=== PATIENT | male | born 1945 | race Caucasian/White ===

== ENCOUNTER → 2016-08-15 | Outpatient (CLI) | payer MEDICARE | LOC: M SMT 08:18 | PROVIDERS: ATTEND Urology | DX: Z85.46 Personal history of malignant neoplasm of prostate (principal) ==

== ENCOUNTER → 2016-09-01 | Outpatient (CLI) | payer MEDICARE ==
[2016-09-01 13:28] LABS: BASO # 0.2 K/mm3 (0.0-0.2); BASO % 2.7 % (0.0-1.0); EOS # 0.2 K/mm3 (0.0-0.50); EOS % 3.3 % (0.0-3.0); LARGE UNSTAINED CELL # 0.1 K/mm3 (0.0-0.4); LARGE UNSTAINED CELL % 2.3 % (0.0-4.0); LYMPH # 1.9 K/mm3 (1.5-4.5); LYMPH % 29.6 % (24.0-44.0); MEAN CORPUSCULAR HEMOGLOBIN 28.8 pg (27.0-33.0); MEAN CORPUSCULAR VOLUME 87.5 fl (80.0-96.0); MONO # 0.5 K/mm3 (0.0-0.8); MONO % 8.9 % (0.0-5.0); NEUTROPHILS # 3.2 K/mm3 (1.8-7.7); NEUTROPHILS % 53.3 % (36.0-66.0); PLATELET COUNT, AUTOMATED 298 k/mm3 (150-450); RED CELL DISTRIBUTION WIDTH 13.2 % (11.5-14.5)
[2016-09-01 13:40] LABS: ALBUMIN/GLOBULIN RATIO 1.25 (1.00-1.93); ALKALINE PHOSPHATASE 104 U/L (45-117); ALT/SGPT 26 U/L (12-78); ANION GAP 4 MEQ/L (8-16); AST/SGOT 22 U/L (15-37); BILIRUBIN,TOTAL 0.7 MG/DL (0.2-1.0); BLOOD UREA NITROGEN 16 MG/DL (7-18); CARBON DIOXIDE LEVEL 32 MEQ/L (21-32); CHLORIDE LEVEL 106 MEQ/L (98-107); CHOLESTEROL LEVEL 195 MG/DL (<200); CREATININE FOR GFR 0.84 MG/DL (0.70-1.30); GLOMERULAR FILTRATION RATE > 60.0 (>42); GLUCOSE, FASTING 91 MG/DL (83-110); POTASSIUM SERUM 4.9 MEQ/L (3.5-5.1); SODIUM LEVEL 142 MEQ/L (136-145); TOTAL PROTEIN 7.2 GM/DL (6.4-8.2); TRIGLYCERIDES LEVEL 68 MG/DL (<150)
== END ==
LOC: M SMT 09:29
PROVIDERS: ATTEND Family Medicine
DX: E03.9 Hypothyroidism, unspecified (principal); I10 Essential (primary) hypertension

== ENCOUNTER → 2016-09-28 | Outpatient (CLI) | payer MEDICARE | LOC: M SMT 09:34 | PROVIDERS: ATTEND Urology | DX: Z85.46 Personal history of malignant neoplasm of prostate (principal) ==

== ENCOUNTER → 2016-10-12 | Outpatient (REF) | payer MEDICARE ==
[2016-10-12 09:56] LABS: BASO % 0.7 % (0.0-1.0); EOS # 0.1 K/mm3 (0.0-0.50); EOS % 2.8 % (0.0-3.0); LARGE UNSTAINED CELL # 0.2 K/mm3 (0.0-0.4); LARGE UNSTAINED CELL % 3.3 % (0.0-4.0); LYMPH # 1.6 K/mm3 (1.5-4.5); LYMPH % 31.3 % (24.0-44.0); MEAN CORPUSCULAR HEMOGLOBIN 28.3 pg (27.0-33.0); MEAN CORPUSCULAR HGB CONC 32.6 g/dl (32.0-36.5); MEAN CORPUSCULAR VOLUME 86.9 fl (80.0-96.0); MONO # 0.4 K/mm3 (0.0-0.8); MONO % 7.9 % (0.0-5.0); NEUTROPHILS # 2.8 K/mm3 (1.8-7.7); NEUTROPHILS % 54.2 % (36.0-66.0); PLATELET COUNT, AUTOMATED 255 k/mm3 (150-450); RED CELL DISTRIBUTION WIDTH 12.6 % (11.5-14.5); WHITE BLOOD COUNT 5.2 K/mm3 (4.0-10.0)
[2016-10-12 10:14] LABS: ANION GAP 9 MEQ/L (8-16); BLOOD UREA NITROGEN 12 MG/DL (7-18); CARBON DIOXIDE LEVEL 30 MEQ/L (21-32); CHLORIDE LEVEL 103 MEQ/L (98-107); CREATININE FOR GFR 0.92 MG/DL (0.70-1.30); FERRITIN 19 NG/ML (26-388); GLOMERULAR FILTRATION RATE > 60.0 (>42); GLUCOSE, FASTING 90 MG/DL (83-110); PERCENT SATURATION 19.3 % (19.7-37.4); POTASSIUM SERUM 4.5 MEQ/L (3.5-5.1); SODIUM LEVEL 142 MEQ/L (136-145); TOTAL IRON BINDING CAPACITY 420 UG/DL (250-450)
== END ==
LOC: M SFHCPLAZ 09:04
PROVIDERS: ATTEND Physician Assistant Medical
DX: K92.1 Melena (principal)

== ENCOUNTER → 2016-10-14 | Outpatient (REF) | payer MEDICARE ==
[~2016-10-14] MED LIST: AVAP75TA PO; LEVO25TA5 PO; LUPR45IN IM
[2016-10-14 10:09] LABS: BASO % 0.7 % (0.0-1.0); EOS # 0.2 K/mm3 (0.0-0.50); EOS % 2.9 % (0.0-3.0); LARGE UNSTAINED CELL # 0.2 K/mm3 (0.0-0.4); LARGE UNSTAINED CELL % 2.8 % (0.0-4.0); LYMPH # 1.9 K/mm3 (1.5-4.5); MEAN CORPUSCULAR HEMOGLOBIN 29.3 pg (27.0-33.0); MEAN CORPUSCULAR HGB CONC 33.1 g/dl (32.0-36.5); MEAN CORPUSCULAR VOLUME 88.5 fl (80.0-96.0); MONO # 0.5 K/mm3 (0.0-0.8); MONO % 8.5 % (0.0-5.0); NEUTROPHILS # 3.2 K/mm3 (1.8-7.7); NEUTROPHILS % 55.1 % (36.0-66.0); PLATELET COUNT, AUTOMATED 264 k/mm3 (150-450); RED CELL DISTRIBUTION WIDTH 12.9 % (11.5-14.5); WHITE BLOOD COUNT 5.8 K/mm3 (4.0-10.0)
[2016-10-14 10:28] LABS: FERRITIN 21 NG/ML (26-388)
== END ==
LOC: M SFHCPLAZ 08:26
PROVIDERS: ATTEND Family Medicine
DX: K92.1 Melena (principal)
CPT/HCPCS: 36415; 82728; 83540; 85025; G0463

== ENCOUNTER → 2016-10-18 | Outpatient (CLI) | payer MEDICARE ==
--- NOTE | 2016-10-18 14:50 | RADONC ---
RADIATION ONCOLOGY CONSULTATION NOTE: DATE: 10/18/2016 DIAGNOSIS: Prostate cancer. STAGE: Stage III, P3hE2B3, recurrent. ECOG PERFORMANCE STATUS: 1 Mr. 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 HISTORY OF PRESENT ILLNESS: The patient was in his usual state of health until he was found to have a rising PSA. On 01/13/2015, the patient underwent prostatic needle biopsy. Pathology revealed a Hammond score 8 (4-4) adenocarcinoma involving both the left and right sides of his prostate. The patient subsequently underwent robotic-assisted laparoscopic prostatectomy and bilateral pelvic lymph node dissection. Pathology revealed a moderate to poorly differentiated Nehal score 7 (4-3) adenocarcinoma of prostate with tertiary Hammond pattern 5. The tumor invaded the seminal vesicles. There was extracapsular extension present as well. The lymph nodes were negative for malignancy. Perineural invasion was present. Lymph vascular invasion was present. A total of 11 regional lymph nodes were sampled and all were negative. The patient has been followed closely post prostatectomy and has had a rising PSA level. In June 2015, it was 0.02. By September 2015, it was 0.03. In March 2016, it was 0.05. In June 2016, it was 0.09. By August 2016 it was 0.13 and September 2016 it reach 0.16. The patient now has a documented biochemical recurrence and is presenting to us for consideration of definitive external beam radiation therapy. Of note the patient reports that he had bright red blood in his toilet with bowel movements all last week. He was bleeding on Monday, Monday, Monday, and Monday as well as Monday. He has had no bowel movements Monday or Monday. The patient is scheduled for a colonoscopy in 2 days on and the results will possibly alter these overall recommendations and evaluation. Of note since his surgery, the patient has remained impotent. He reports stress incontinence. When he is running or lifting anything heavy or coughing, the patient reports that he actually urinates quite a bit. PAST MEDICAL HISTORY: The patient's past medical history is positive for hypertension. He has undergone multiple colonoscopies following the finding of polyps in the past. He has a history of urinary tract infections. He has had a history of right pneumothorax secondary to trauma. 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 He has had inguinal hernia repairs bilaterally. He has had surgically repaired joint in the right shoulder. ALLERGIES: The patient is allergic to CIPRO as well as CELEBREX and adhesive tape. SOCIAL HISTORY: The patient does not smoke cigarettes. He quit in 1968. He drinks approximately two alcoholic beverages a week. FAMILY HISTORY: The patient's family history is positive for sister with ovarian cancer. REVIEW OF SYSTEMS: The patient's review of systems is positive for as above mentioned rectal bleeding as well as some impotence and incontinence but is otherwise noncontributory. He denies nausea, vomiting, fevers, chills, night sweats, diplopia, headaches, anxiety or depression, anorexia, weight loss, visual disturbances, chest pain, urinary or bowel difficulties, bone pain, or neurological problems. PHYSICAL EXAMINATION: The patient is a well-developed, well-nourished male in no acute distress. HEENT exam is normocephalic, atraumatic. Extraocular movements are intact. There is no palpable cervical, supraclavicular, infraclavicular, axillary, or inguinal lymphadenopathy present. Lungs are clear to auscultation and percussion. Heart has a regular rate and rhythm. Abdomen is benign with no hepatosplenomegaly, masses, or tenderness. Rectal examination reveals a normal anal sphincter tone. His prostate bed is smooth with no evidence of nodularity. Skeletal examination reveals no tenderness to pressure or percussion of the bony skeleton. Extremities reveal no clubbing, cyanosis, or edema. Neurologic exam is grossly intact, as is the remainder of the physical examination. ASSESSMENT: Clearly the patient is a candidate for radiation therapy and I have so informed him. I have discussed with the patient in detail the potential benefits as well as possible acute and chronic sequelae of external beam radiation therapy. We have discussed logistics of treatment planning, simulation and subsequent fractionated daily radiation treatments. I have tentatively set up the patient for simulation and initiation of treatment planning. As noted above, the patient is scheduled for colonoscopy in 2 days. We await the results of that study. Recommendation may be changed depending on the findings. Thank you for allowing us to participate in the care of this very pleasant gentleman. If I could be of any further assistance or provide you with any information, please feel free to contact me at any time. As always with warm regards, cc: MD Janes Correa MD
--- NOTE | 2016-10-31 08:59 | RADONC ---
RADIATION ONCOLOGY SIMULATION NOTE DATE: 10/31/2016 CHART NUMBER: [id number] Mr. Calderon was taken to the CT scan for CT simulation of his prostate bed field. Simulation was accomplished without difficulty or discomfort. Radiation treatment planning is underway and radiation treatments will begin subsequently. An immobilization device was created and will be used throughout the course of treatment. It was also created without difficulty or discomfort. I was physically present throughout the course of CT simulation.
== END ==
LOC: M ONCR 10:00
PROVIDERS: ATTEND Radiology Radiation Oncology
DX: C61 Malignant neoplasm of prostate (principal)

== ENCOUNTER → 2016-10-20 | Outpatient (CLI) | payer MEDICARE ==
[~2016-10-20] VITALS: Ht 190.5 cm; Wt 97.5 kg
[~2016-10-20] MED LIST changes: +NS 1,000 ML IV SCH; +PROPOFOL 200 MG/20 ML VIAL As Ordered ONE
--- NOTE | 2016-10-20 15:01 | ROOR ---
Patient Name: Edfriendship Calderon Procedure Date: 10/20/2016 2:24 PM Date of : 1945 Age: 71 Room: [facility] Gender: Male Note Status: Finalized Procedure: Colonoscopy Indications: Rectal bleeding Providers: Rambo Toth Jr, MD Referring MD: Janes Curry MD Requesting Provider: Medicines: Propofol per Anesthesia Complications: No immediate complications. Procedure: Pre-Anesthesia Assessment: - Prior to the procedure, a History and Physical was performed, and patient medications and allergies were reviewed. The patient is competent. The risks and benefits of the procedure and the sedation options and risks were discussed with the patient. All questions were answered and informed consent was obtained. Patient identification and proposed procedure were verified by the physician and the nurse in the pre-procedure area and in the procedure room. Mental Status Examination: alert and oriented. Airway Examination: normal oropharyngeal airway and neck mobility. Respiratory Examination: clear to auscultation. CV Examination: normal. ASA Grade Assessment: II - A patient with mild systemic disease. After reviewing the risks and benefits, the patient was deemed in satisfactory condition to undergo the procedure. The anesthesia plan was to use moderate sedation / analgesia (conscious sedation). Immediately prior to administration of medications, the patient was re-assessed for adequacy to receive sedatives. The heart rate, respiratory rate, oxygen saturations, blood pressure, adequacy of pulmonary ventilation, and response to care were monitored throughout the procedure. The physical status of the patient was re-assessed after the procedure. The Colonoscope was introduced through the anus and advanced to the cecum, identified by appendiceal orifice and ileocecal valve. The colonoscopy was performed without difficulty. The patient tolerated the procedure well. The quality of the bowel preparation was adequate and good. Findings: The rectum, sigmoid colon, descending colon, transverse colon, ascending colon, cecum, appendiceal orifice and ileocecal valve appeared normal. Internal hemorrhoids were found during endoscopy. The hemorrhoids were Grade II (internal hemorrhoids that prolapse but reduce spontaneously) and Grade III (internal hemorrhoids that prolapse but require manual reduction). Impression: - The rectum, sigmoid colon, descending colon, transverse colon, ascending colon, cecum, appendiceal orifice and ileocecal valve are normal. - Internal hemorrhoids. - No specimens collected. Recommendation: - Repeat colonoscopy in 3 - 5 years for surveillance. Rambo Toth MD Rambo Toth Jr, MD 10/20/2016 3:01:16 PM This report has been signed electronically. Number of Addenda: 0 Note Initiated On: 10/20/2016 2:24 PM Estimated Blood Loss: Estimated blood loss: none.
[2016-10-20 15:20] VITALS: BP 128/79
== END | disposition home or self-care (01) ==
LOC: M OPP 13:28
PROVIDERS: ATTEND Surgery
DX: K62.5 Hemorrhage of anus and rectum (principal); K64.2 Third degree hemorrhoids; K64.1 Second degree hemorrhoids; Z86.010 Personal history of colon polyps; I10 Essential (primary) hypertension; E03.9 Hypothyroidism, unspecified; R06.83 Snoring; Z85.46 Personal history of malignant neoplasm of prostate; Z87.19 Personal history of other diseases of the digestive system; Z87.891 Personal history of nicotine dependence; Z88.8 Allergy status to other drugs, medicaments and biological substances; Z91.048 Other nonmedicinal substance allergy status; Z91.018 Allergy to other foods; Z79.899 Other long term (current) drug therapy; Z79.82 Long term (current) use of aspirin; Z85.828 Personal history of other malignant neoplasm of skin; Z80.41 Family history of malignant neoplasm of ovary

== ENCOUNTER → 2016-10-27 | Outpatient (REF) | payer MEDICARE ==
[~2016-10-27] MED LIST changes: -NS 1,000 ML IV SCH; -PROPOFOL 200 MG/20 ML VIAL As Ordered ONE
[2016-10-27 12:45] LABS: BASO % 0.3 % (0.0-1.0); EOS # 0.1 K/mm3 (0.0-0.50); EOS % 2.6 % (0.0-3.0); LARGE UNSTAINED CELL # 0.1 K/mm3 (0.0-0.4); LARGE UNSTAINED CELL % 1.9 % (0.0-4.0); LYMPH # 1.7 K/mm3 (1.5-4.5); LYMPH % 28.9 % (24.0-44.0); MEAN CORPUSCULAR HEMOGLOBIN 28.1 pg (27.0-33.0); MEAN CORPUSCULAR HGB CONC 31.5 g/dl (32.0-36.5); MEAN CORPUSCULAR VOLUME 89.1 fl (80.0-96.0); MONO # 0.4 K/mm3 (0.0-0.8); MONO % 7.2 % (0.0-5.0); NEUTROPHILS # 3.3 K/mm3 (1.8-7.7); NEUTROPHILS % 59.1 % (36.0-66.0); PLATELET COUNT, AUTOMATED 254 k/mm3 (150-450); RED CELL DISTRIBUTION WIDTH 12.6 % (11.5-14.5); WHITE BLOOD COUNT 5.5 K/mm3 (4.0-10.0)
[2016-10-27 13:02] LABS: ALBUMIN/GLOBULIN RATIO 1.29 (1.00-1.93); ALKALINE PHOSPHATASE 91 U/L (45-117); ALT/SGPT 29 U/L (12-78); ANION GAP 7 MEQ/L (8-16); AST/SGOT 20 U/L (15-37); BILIRUBIN,TOTAL 0.7 MG/DL (0.2-1.0); BLOOD UREA NITROGEN 15 MG/DL (7-18); CALCIUM LEVEL 9.6 MG/DL (8.8-10.2); CARBON DIOXIDE LEVEL 30 MEQ/L (21-32); CHLORIDE LEVEL 104 MEQ/L (98-107); CREATININE FOR GFR 0.84 MG/DL (0.70-1.30); FERRITIN 42 NG/ML (26-388); FREE T4 0.99 NG/DL (0.76-1.46); GLOMERULAR FILTRATION RATE > 60.0 (>42); GLUCOSE, FASTING 95 MG/DL (83-110); POTASSIUM SERUM 4.7 MEQ/L (3.5-5.1); SODIUM LEVEL 141 MEQ/L (136-145); TOTAL PROTEIN 7.1 GM/DL (6.4-8.2)
== END ==
LOC: M SFHCPLAZ 08:18
PROVIDERS: ATTEND Physician Assistant Medical
DX: I10 Essential (primary) hypertension (principal); K92.1 Melena; C61 Malignant neoplasm of prostate

== ENCOUNTER 2016-10-31 09:13 | Outpatient (RCR) | payer MEDICARE | END 2016-11-04 | LOC: M ONCR 09:13 | PROVIDERS: ATTEND Radiology Radiation Oncology | DX: C61 Malignant neoplasm of prostate (principal) ==

== ENCOUNTER → 2016-10-31 | Outpatient (CLI) | payer MEDICARE | LOC: M RAD 08:15 | PROVIDERS: ATTEND Radiology Radiation Oncology | DX: C61 Malignant neoplasm of prostate (principal) ==

== ENCOUNTER 2016-11-07 09:02 | Outpatient (RCR) | payer MEDICARE ==
--- NOTE | 2016-11-14 14:47 | RADONC ---
RADIATION ONCOLOGY PROGRESS NOTE DATE: 11/14/2016 CHART NUMBER: [id number]. PROGRESS NOTE: Mr. Calderon is presently a dose of 900 cGy to his prostate and is tolerating treatments quite well at this point with no complaints related to his radiation therapy. He is having no urinary or bowel difficulties and no bone pain. REVIEW OF SYSTEMS: The patient's review of systems is noncontributory. He denies nausea, vomiting, fevers, chills, night sweats, diplopia, headaches, anxiety or depression, anorexia, weight loss, visual disturbances, chest pain, urinary or bowel difficulties, bone pain or neurological problems. PHYSICAL EXAMINATION: The patient's skin is in good condition with no evidence of radiation change present. There is no moist or dry desquamation. The remainder of his physical exam remains unchanged. Mr. Calderon is tolerating treatments quite well and radiation will continue as scheduled.
--- NOTE | 2016-11-21 09:49 | RADONC ---
RADIATION ONCOLOGY PROGRESS NOTE DATE: 11/21/2016 CHART NUMBER: [id number] Mr. Calderon is presently at a dose of 1800 cGy to his prostate and is tolerating treatments quite well at this point with no complaints related to his radiation therapy other than some loose bowel movements. He is having no urinary problems. REVIEW OF SYSTEMS: The patient's review of systems is largely noncontributory. Denies nausea, vomiting, fevers, chills, night sweats, diplopia, headaches, anxiety or depression, anorexia, weight loss, visual disturbances, chest pain, urinary or bowel difficulties, bone pain, or neurological problems. PHYSICAL EXAMINATION: The patient's skin is in excellent condition with no evidence of radiation change present. The remainder of his physical exam remains unchanged as well. Mr. Calderon is tolerating treatments quite well and radiation will continue as scheduled.
--- NOTE | 2016-11-29 07:03 | RADONC ---
RADIATION ONCOLOGY DATE: 11/28/2016 PROGRESS NOTE CHART NUMBER: [id number] Mr. Calderon is presently at a dose of 2700 cGy to his prostate bed and is tolerating treatments quite well at this point with no complaints related to his radiation therapy. He is having no urinary or bowel difficulties and no bone pain. REVIEW OF SYSTEMS: The patient's review of systems is noncontributory. Denies nausea, vomiting, fevers, chills, night sweats, diplopia, headaches, anxiety or depression, anorexia, weight loss, visual disturbances, chest pain, urinary or bowel difficulties, bone pain, or neurological problems. PHYSICAL EXAMINATION: The patient's skin is in good condition with no evidence of radiation change present. There is no moist or dry desquamation. The remainder of his physical exam remains unchanged. Mr. Calderon is tolerating treatments quite well and radiation will continue as scheduled.
== END 2016-12-04 ==
LOC: M ONCR 09:02
PROVIDERS: ATTEND Radiology Radiation Oncology
DX: C61 Malignant neoplasm of prostate (principal)

== ENCOUNTER → 2016-11-23 | Outpatient (CLI) | payer MEDICARE | LOC: M LAB 09:27 | PROVIDERS: ATTEND Radiology Radiation Oncology | DX: R30.0 Dysuria (principal) ==

== ENCOUNTER 2016-12-05 13:58 | Outpatient (RCR) | payer MEDICARE ==
--- NOTE | 2016-12-06 07:33 | RADONC ---
RADIATION ONCOLOGY PROGRESS NOTE: DATE OF SERVICE: 12/05/2016 CHART NO: [id number] Mr. Calderon is presently at a dose of 3420 cGy to his prostate and is tolerating treatments quite well at this point with no complaints related to his radiation therapy. He is having no urinary or bowel difficulties and no bone pain. REVIEW OF SYSTEMS: The patient's review of systems is noncontributory. Denies nausea, vomiting, fevers, chills, night sweats, diplopia, headaches, anxiety or depression, anorexia, weight loss, visual disturbances, chest pain, urinary or bowel difficulties, bone pain, or neurological problems. PHYSICAL EXAMINATION: The patient's skin is in good condition with no evidence of moist or dry desquamation. The remainder of his physical exam remains unchanged. Mr. Calderon is tolerating his treatments quite well and radiation will continue as scheduled. This very pleasant gentleman is anticipated to be able to complete treatments as prescribed on time.
--- NOTE | 2016-12-12 10:55 | RADONC ---
RADIATION ONCOLOGY PROGRESS NOTE: DATE: 12/12/2016 CHART NO: [id number] Mr. Maher is presently at a dose of 4380 cGy to his prostate bed and is tolerating treatments quite well at this point with no complaints related to his radiation therapy. He is having no urinary or bowel difficulties and no bone pain. REVIEW OF SYSTEMS: The patient's review of systems is noncontributory. Denies nausea, vomiting, fevers, chills, night sweats, diplopia, headaches, anxiety or depression, anorexia, weight loss, visual disturbances, chest pain, urinary or bowel difficulties, bone pain, or neurological problems. PHYSICAL EXAMINATION: The patient's skin is in good condition with no evidence of radiation change present. There is no moist or dry desquamation. The remainder of his physical exam remains unchanged. Mr. Maher is tolerating treatments quite well and radiation will continue as scheduled.
--- NOTE | 2016-12-19 10:07 | RADONC ---
RADIATION ONCOLOGY PROGRESS NOTE: DATE OF SERVICE: 12/19/2016 CHART NO: [id number] Mr. Calderon is presently at a dose of 5220 cGy to his prostate bed and is tolerating treatments quite well at this point with no complaints related to his radiation therapy. He is having no urinary or bowel difficulties and no bone pain. REVIEW OF SYSTEMS: The patient's review of systems is noncontributory. He denies nausea, vomiting, fevers, chills, night sweats, diplopia, headaches, anxiety or depression, anorexia, weight loss, visual disturbances, chest pain, urinary or bowel difficulties, bone pain, or neurological problems. PHYSICAL EXAMINATION: The patient's skin is in good condition with no evidence of radiation change present. There is no moist or dry desquamation. The remainder of his physical exam remains unchanged. Mr. Calderon is tolerating treatments quite well and radiation will continue as scheduled.
--- NOTE | 2016-12-26 09:19 | RADONC ---
RADIATION ONCOLOGY PROGRESS NOTE DATE: 12/26/2016 CHART NUMBER: [id number] Mr. Calderon is presently at a dose of 6120 cGy to his prostate bed and is tolerating treatments quite well at this point with no complaints related to his radiation therapy. He is having no urinary or bowel difficulties and no bone pain. The patient's review of systems is noncontributory. He denies nausea, vomiting, fevers, chills, night sweats, diplopia, headaches, anxiety or depression, anorexia, weight loss, visual disturbances, chest pain, urinary or bowel difficulties, bone pain, or neurological problems. PHYSICAL EXAMINATION: The patient's skin is in good condition with no evidence of radiation change present. There is no moist or dry desquamation. The remainder of his physical exam remains unchanged. Mr. Calderon is tolerating treatments quite well and radiation will continue as scheduled.
--- NOTE | 2016-12-29 14:41 | RADONC ---
RADIATION ONCOLOGY TREATMENT SUMMARY DATE: 12/30/2015 CHART NUMBER: [id number] DIAGNOSIS: Prostate cancer. STAGE: III, [id number], recurrent. ECOG PERFORMANCE STATUS: 0 TREATMENT SUMMARY: Mr. Calderon is a very pleasant 71-year-old white male with the diagnosis what appears to be a stage III, [id number], recurrent poorly differentiated Nehal score 8 (4-4) adenocarcinoma of prostate who presented to us status post robotic-assisted laparoscopic prostatectomy for consideration of postoperative radiation therapy in an attempt to achieve local control and cure. We treated the patient for a total dose of 6660 cGy delivered in 37 fractions of 180 cGy each over 50 elapsed days from 11/08/2016 through 12/28/2016. The patient's prostate was treated on the linear accelerator utilizing an 18 MV photon beam via 3D conformal therapy with a four field technique. We initially treated a larger jordan to a dose of 4500 cGy and subsequently coned down to deliver the remaining 2160 cGy to the prostate bed itself in order to maintain the small bowel and other structures within their tolerance limits. Mr. Calderon tolerated his treatments quite well with no significant difficulties related to his radiation therapy. He was able to complete therapy as prescribed without interruption. I have scheduled the patient see me again in 1 month for further followup. He will also continue to be followed and managed closely by his other physicians as well. cc: MD Janes Correa MD
== END 2017-01-04 ==
LOC: M ONCR 13:58
PROVIDERS: ATTEND Radiology Radiation Oncology
DX: C61 Malignant neoplasm of prostate (principal)

== ENCOUNTER → 2017-01-11 | Outpatient (CLI) | payer MEDICARE | LOC: M SMT 08:10 | PROVIDERS: ATTEND Urology | DX: C61 Malignant neoplasm of prostate (principal) ==

== ENCOUNTER → 2017-01-25 | Outpatient (CLI) | payer MEDICARE ==
[2017-01-25 14:05] LABS: ALBUMIN 3.8 GM/DL (3.2-5.2); ALBUMIN/GLOBULIN RATIO 1.15 (1.00-1.93); ALKALINE PHOSPHATASE 93 U/L (45-117); ALT/SGPT 53 U/L (12-78); ANION GAP 6 MEQ/L (8-16); AST/SGOT 35 U/L (15-37); BILIRUBIN,TOTAL 0.7 MG/DL (0.2-1.0); BLOOD UREA NITROGEN 21 MG/DL (7-18); CALCIUM LEVEL 9.5 MG/DL (8.8-10.2); CARBON DIOXIDE LEVEL 30 MEQ/L (21-32); CHLORIDE LEVEL 106 MEQ/L (98-107); CREATININE FOR GFR 0.72 MG/DL (0.70-1.30); FREE T4 1.21 NG/DL (0.76-1.46); GLOMERULAR FILTRATION RATE > 60.0 (>42); GLUCOSE, FASTING 97 MG/DL (83-110); SODIUM LEVEL 142 MEQ/L (136-145); TOTAL PROTEIN 7.1 GM/DL (6.4-8.2)
== END ==
LOC: M SMT 08:18
PROVIDERS: ATTEND Family Medicine
DX: E03.9 Hypothyroidism, unspecified (principal); I10 Essential (primary) hypertension; R73.01 Impaired fasting glucose

== ENCOUNTER → 2017-02-01 | Outpatient (CLI) | payer MEDICARE ==
--- NOTE | 2017-02-01 10:22 | RADONC ---
RADIATION ONCOLOGY PROGRESS NOTE: DATE: 02/01/2017 CHART NUMBER: [id number]. DIAGNOSIS: Prostate cancer. STAGE: III, O3xX2B7, recurrent. ECOG PERFORMANCE STATUS: Zero. FOLLOWUP NOTE: Mr. Calderon is a very pleasant, 71-year-old white male with the diagnosis of what appears to be a stage III, [id number], recurrent poorly differentiated Nehal score 8 (4-4) adenocarcinoma of prostate who is presenting to us today for routine followup visit 1 month post completion of external beam radiation therapy. The patient presents today reporting that he is doing quite well with no complaints at this time related to his radiation therapy or disease. He has no urinary or bowel difficulties and no bone pain. REVIEW OF SYSTEMS: The patient's review of systems is noncontributory. Denies nausea, vomiting, fevers, chills, night sweats, diplopia, headaches, anxiety or depression, anorexia, weight loss, visual disturbances, chest pain, urinary or bowel difficulties, bone pain, or neurological problems. PHYSICAL EXAMINATION: The patient is a well-developed, well-nourished male in no acute distress. HEENT exam is normocephalic, atraumatic. Extraocular movements are intact. There is no palpable cervical, supraclavicular, infraclavicular, axillary, or inguinal lymphadenopathy present. Lungs are clear to auscultation and percussion. Heart has a regular rate and rhythm. Abdomen is benign with no hepatosplenomegaly, masses, or tenderness. Rectal examination reveals a normal anal sphincter tone. His prostate bed is smooth with no evidence of nodularity. Skeletal examination reveals no tenderness to pressure or percussion of the bony skeleton. Extremities reveal no clubbing, cyanosis, or edema. Neurologic exam is grossly intact, as is the remainder of the physical examination. ASSESSMENT: The patient is clinically KERI at this time and will be seen by us again in 6 months for further followup. He will also continue be followed by his other physicians as well. cc: MD Janes Correa MD
== END ==
LOC: M ONCR 09:10
PROVIDERS: ATTEND Radiology Radiation Oncology
DX: C61 Malignant neoplasm of prostate (principal)

== ENCOUNTER → 2017-04-11 | Outpatient (REF) | payer MEDICARE ==
[~2017-04-11] MED LIST changes: -AVAP75TA PO; +AVAP75TA7 PO
== END ==
LOC: M SFHCPLAZ 08:39
PROVIDERS: ATTEND Family Medicine
DX: E55.9 Vitamin D deficiency, unspecified (principal); E78.5 Hyperlipidemia, unspecified; E03.9 Hypothyroidism, unspecified

== ENCOUNTER → 2017-05-10 | Outpatient (CLI) | payer MEDICARE | LOC: M SMT 08:07 | PROVIDERS: ATTEND Urology | DX: C61 Malignant neoplasm of prostate (principal) ==

== ENCOUNTER → 2017-07-20 | Outpatient (CLI) | payer MEDICARE | LOC: M SMT 08:03 | PROVIDERS: ATTEND Radiology Radiation Oncology | DX: C61 Malignant neoplasm of prostate (principal) ==

== ENCOUNTER → 2017-07-26 | Outpatient (CLI) | payer MEDICARE ==
--- NOTE | 2017-07-29 08:31 | RADONC ---
RADIATION ONCOLOGY FOLLOWUP NOTE DATE: 07/26/2017 CHART NUMBER: [id number] DIAGNOSIS: Prostate cancer. STAGE: III, G4mD8D6, recurrent. ECOG PERFORMANCE STATUS: 0. FOLLOWUP NOTE: Mr. Calderon is a very pleasant 72-year-old white male with the diagnosis what appears to be a stage III, X0hC7O0, recurrent poorly differentiated [place] score 8 (4-4) adenocarcinoma of prostate who is presenting to us today for routine followup visit 7 months post completion of external beam radiation therapy. The patient presents today reporting that generally he is doing quite well with no complaints at this time related to his radiation therapy or disease except for his continued stress incontinence which has gone on since the time of surgery. The patient's review of systems is positive for the stress incontinence but is otherwise noncontributory. He denies nausea, vomiting, fevers, chills, night sweats, diplopia, headaches, anxiety or depression, anorexia, weight loss, visual disturbances, chest pain, urinary or bowel difficulties, bone pain, or neurological problems. PHYSICAL EXAMINATION: The patient is a well-developed, well-nourished male in no acute distress. HEENT exam is normocephalic, atraumatic. Extraocular movements are intact. There is no palpable cervical, supraclavicular, infraclavicular, axillary, or inguinal lymphadenopathy present. Lungs are clear to auscultation and percussion. Heart has a regular rate and rhythm. Abdomen is benign with no hepatosplenomegaly, masses, or tenderness. Rectal examination reveals a normal anal sphincter tone. His prostate bed is smooth with no evidence of nodularity. Skeletal examination reveals no tenderness to pressure or percussion of the bony skeleton. Extremities reveal no clubbing, cyanosis, or edema. Neurologic exam is grossly intact as is the remainder of the physical examination. ASSESSMENT: The patient is clinically KERI at this time and will be seen by us again in 6 months for further followup. He will also continue to be followed by his other physicians as well. cc: MD Janes Correa MD
== END ==
LOC: M ONCR 09:30
PROVIDERS: ATTEND Radiology Radiation Oncology
DX: C61 Malignant neoplasm of prostate (principal)

== ENCOUNTER → 2017-08-17 | Outpatient (CLI) | payer MEDICARE ==
[2017-08-17 14:28] LABS: PROSTATIC SPECIFIC AG MONITOR < 0.01 NG/ML (< 4.0)
== END ==
LOC: M SMT 08:17
DX: C61 Malignant neoplasm of prostate (principal)
CPT/HCPCS: 84153

== ENCOUNTER → 2017-09-07 | Outpatient (CLI) | payer MEDICARE ==
[2017-09-07 15:58] LABS: PTH INTACT 15.7 PG/ML (14.0-72.0); TOTAL 25(OH) VITAMIN D 48.5 NG/ML (30.0-100.0)
[2017-09-07 16:28] LABS: ALBUMIN 4.3 GM/DL (3.2-5.2); ALBUMIN/GLOBULIN RATIO 1.39 (1.00-1.93); ALKALINE PHOSPHATASE 122 U/L (45-117); ALT/SGPT 35 U/L (12-78); ANION GAP 6 MEQ/L (8-16); AST/SGOT 20 U/L (7-37); BILIRUBIN,TOTAL 0.6 MG/DL (0.2-1.0); BLOOD UREA NITROGEN 14 MG/DL (7-18); CALCIUM LEVEL 9.5 MG/DL (8.8-10.2); CARBON DIOXIDE LEVEL 30 MEQ/L (21-32); CHLORIDE LEVEL 105 MEQ/L (98-107); CHOLESTEROL LEVEL 256 MG/DL (<200); CHOLESTEROL RISK RATIO 3.011 (<5); CREATININE FOR GFR 0.66 MG/DL (0.70-1.30); GLOMERULAR FILTRATION RATE > 60.0 (>42); GLUCOSE, FASTING 100 MG/DL (70-100); HDL CHOLESTEROL 85 MG/DL (>40); LDL CHOLESTEROL 154.6 MG/DL (<100); NON-HDL-C 171 MG/DL; POTASSIUM SERUM 4.5 MEQ/L (3.5-5.1); SODIUM LEVEL 141 MEQ/L (136-145); TOTAL PROTEIN 7.4 GM/DL (6.4-8.2); TRIGLYCERIDES LEVEL 82 MG/DL (<150)
== END ==
LOC: M SMT 08:03
DX: E55.9 Vitamin D deficiency, unspecified (principal); E03.9 Hypothyroidism, unspecified; E78.5 Hyperlipidemia, unspecified
CPT/HCPCS: 84443

== ENCOUNTER → 2018-02-08 | Outpatient (CLI) | payer MEDICARE ==
[2018-02-08 13:28] LABS: PROSTATIC SPECIFIC AG MONITOR 0.03 NG/ML (< 4.0)
== END ==
LOC: M SMT 07:56
DX: C61 Malignant neoplasm of prostate (principal)
CPT/HCPCS: 84153

== ENCOUNTER → 2018-02-14 | Outpatient (CLI) | payer MEDICARE | LOC: M ONCR 11:26 | DX: C61 Malignant neoplasm of prostate (principal) | CPT/HCPCS: G0463 ==

== ENCOUNTER → 2018-05-03 | Outpatient (CLI) | payer MEDICARE ==
[2018-05-03 14:09] LABS: PROSTATIC SPECIFIC AG MONITOR 0.02 NG/ML (< 4.0)
== END ==
LOC: M SMT 09:45
DX: C61 Malignant neoplasm of prostate (principal)
CPT/HCPCS: 84153

== ENCOUNTER → 2018-05-09 | Outpatient (CLI) | payer MEDICARE | LOC: M ONCR 11:00 | DX: C61 Malignant neoplasm of prostate (principal) | CPT/HCPCS: G0463 ==

== ENCOUNTER → 2018-05-17 | Outpatient (CLI) | payer MEDICARE ==
[2018-05-17 13:42] LABS: PROSTATIC SPECIFIC AG MONITOR 0.02 NG/ML (< 4.0)
== END ==
LOC: M SMT 10:16
DX: C61 Malignant neoplasm of prostate (principal)
CPT/HCPCS: 84153

== ENCOUNTER → 2018-07-11 | Outpatient (REF) | payer MEDICARE ==
[2018-07-11 14:22] LABS: APPEARANCE, URINE CLOUDY (CLEAR); BACTERIA, URINE AUTO NEGATIVE (NEGATIVE); BILIRUBIN, URINE AUTO NEGATIVE (NEGATIVE); BLOOD, URINE BLOOD 3+ (NEGATIVE); COLOR, URINE YELLOW (YELLOW); GLUCOSE, URINE (UA) AUTO NEGATIVE (NEGATIVE); KETONE, URINE AUTO NEGATIVE (NEGATIVE); LEUKOCYTE ESTERASE, URINE AUTO NEGATIVE (NEGATIVE); MUCUS, URINE SMALL (NEGATIVE); NITRITE, URINE AUTO NEGATIVE (NEGATIVE); PROTEIN, URINE AUTO 1+ mg/dL (NEGATIVE); RBC, URINE AUTO TNTC /HPF (0-3); SPECIFIC GRAVITY URINE AUTO 1.024 (1.002-1.035); SQUAMOUS EPITHELIAL CELL UR AU 0 /HPF (0-6); UROBILINOGEN, URINE AUTO 0.2 mg/dL (0.0-2.0); WBC, URINE AUTO 2 /HPF (0-3)
== END ==
LOC: M SMT 13:10
DX: R31.0 Gross hematuria (principal)
CPT/HCPCS: 81001

== ENCOUNTER → 2018-07-17 | Outpatient (CLI) | payer MEDICARE | LOC: M RAD 06:46 | DX: R31.9 Hematuria, unspecified (principal); R10.30 Lower abdominal pain, unspecified; N20.0 Calculus of kidney | CPT/HCPCS: 74176 ==

== ENCOUNTER → 2018-08-20 | Outpatient (REF) | payer MEDICARE ==
[~2018-08-20] MED LIST changes: +LEVO75TA4 PO
[2018-08-20 13:43] LABS: AMORPHOUS SEDIMENT SMALL (NEGATIVE); APPEARANCE, URINE TURBID (CLEAR); BACTERIA, URINE AUTO 1+ (NEGATIVE); BILIRUBIN, URINE AUTO NEGATIVE (NEGATIVE); BLOOD, URINE BLOOD 3+ (NEGATIVE); COLOR, URINE AMBER (YELLOW); GLUCOSE, URINE (UA) AUTO NEGATIVE (NEGATIVE); KETONE, URINE AUTO NEGATIVE (NEGATIVE); LEUKOCYTE ESTERASE, URINE AUTO 2+ (NEGATIVE); MUCUS, URINE SMALL (NEGATIVE); NITRITE, URINE AUTO NEGATIVE (NEGATIVE); PROTEIN, URINE AUTO 2+ mg/dL (NEGATIVE); RBC, URINE AUTO 67 /HPF (0-3); SPECIFIC GRAVITY URINE AUTO 1.023 (1.002-1.035); SQUAMOUS EPITHELIAL CELL UR AU 0 /HPF (0-6); UROBILINOGEN, URINE AUTO 0.2 mg/dL (0.0-2.0); WBC, URINE AUTO 59 /HPF (0-3)
== END ==
LOC: M SMT 13:05
PROVIDERS: ATTEND Nurse Practitioner Women's Health
DX: R31.0 Gross hematuria (principal)
CPT/HCPCS: 81001; 87086; G0463

== ENCOUNTER → 2018-09-13 | Outpatient (CLI) | payer MEDICARE | LOC: M SMT 11:04 | PROVIDERS: ATTEND Urology | DX: C61 Malignant neoplasm of prostate (principal) ==

== ENCOUNTER → 2018-10-01 | Outpatient (CLI) | payer MEDICARE ==
[2018-10-01 10:55] LABS: BASO % 0.4 % (0.0-1.0); EOS # 0.1 10^3/uL (0.0-0.50); EOS % 1.5 % (0.0-3.0); HEMATOCRIT 48.9 % (42.0-52.0); HEMOGLOBIN 15.8 g/dl (13.5-17.5); LYMPH # 1.2 10^3/uL (1.5-4.5); LYMPH % 26.3 % (24.0-44.0); MEAN CORPUSCULAR HEMOGLOBIN 29.9 pg (27.0-33.0); MEAN CORPUSCULAR HGB CONC 32.3 g/dl (32.0-36.5); MEAN CORPUSCULAR VOLUME 92.4 fl (80.0-96.0); MONO # 0.5 10^3/uL (0.0-0.8); MONO % 10.6 % (0.0-5.0); NEUTROPHILS # 2.8 10^3/uL (1.8-7.7); NEUTROPHILS % 60.8 % (36.0-66.0); PLATELET COUNT, AUTOMATED 246 10^3/uL (150-450); RED BLOOD COUNT 5.29 10^6/uL (4.30-6.10); WHITE BLOOD COUNT 4.5 10^3/uL (4.0-10.0)
[2018-10-01 11:05] LABS: ALBUMIN 3.8 GM/DL (3.2-5.2); ALT/SGPT 26 U/L (12-78); BILIRUBIN,TOTAL 0.6 MG/DL (0.2-1.0); BLOOD UREA NITROGEN 17 MG/DL (7-18); CALCIUM LEVEL 8.8 MG/DL (8.8-10.2); CARBON DIOXIDE LEVEL 29 MEQ/L (21-32); CHLORIDE LEVEL 108 MEQ/L (98-107); CREATININE FOR GFR 0.85 MG/DL (0.70-1.30); FREE T4 1.04 NG/DL (0.76-1.46); GLOMERULAR FILTRATION RATE > 60.0 (>42); GLUCOSE, FASTING 98 MG/DL (70-100); POTASSIUM SERUM 4.8 MEQ/L (3.5-5.1); SODIUM LEVEL 143 MEQ/L (136-145); TOTAL PROTEIN 6.8 GM/DL (6.4-8.2)
[2018-10-01 11:16] LABS: HEMOGLOBIN A1c 5.8 %
[2018-10-01 11:31] LABS: TOTAL 25(OH) VITAMIN D 47.9 NG/ML (30.0-100.0)
== END ==
LOC: M SMT 07:59
PROVIDERS: ATTEND Family Medicine
DX: I10 Essential (primary) hypertension (principal); E03.9 Hypothyroidism, unspecified; E55.9 Vitamin D deficiency, unspecified; E78.2 Mixed hyperlipidemia

== ENCOUNTER → 2018-12-06 | Outpatient (REF) | payer MEDICARE ==
[2018-12-06 15:03] LABS: APPEARANCE, URINE HAZY (CLEAR); BACTERIA, URINE AUTO 1+ (NEGATIVE); BILIRUBIN, URINE AUTO NEGATIVE (NEGATIVE); BLOOD, URINE BLOOD 2+ (NEGATIVE); COLOR, URINE YELLOW (YELLOW); GLUCOSE, URINE (UA) AUTO NEGATIVE (NEGATIVE); KETONE, URINE AUTO NEGATIVE (NEGATIVE); LEUKOCYTE ESTERASE, URINE AUTO 2+ (NEGATIVE); MUCUS, URINE SMALL (NEGATIVE); NITRITE, URINE AUTO NEGATIVE (NEGATIVE); PROTEIN, URINE AUTO 1+ mg/dL (NEGATIVE); RBC, URINE AUTO TNTC /HPF (0-3); SPECIFIC GRAVITY URINE AUTO 1.026 (1.002-1.035); SQUAMOUS EPITHELIAL CELL UR AU 0 /HPF (0-6); UROBILINOGEN, URINE AUTO 0.2 mg/dL (0.0-2.0); WBC, URINE AUTO 53 /HPF (0-3)
== END ==
LOC: M SMT 13:26
PROVIDERS: ATTEND Urology
DX: R31.0 Gross hematuria (principal)
CPT/HCPCS: 81001; 87088; 87186; G0463

== ENCOUNTER → 2018-12-28 | Outpatient (CLI) | payer MEDICARE | LOC: M SMT 08:48 | PROVIDERS: ATTEND Urology | DX: C61 Malignant neoplasm of prostate (principal) ==

== ENCOUNTER → 2019-03-25 | Outpatient (CLI) | payer MEDICARE | LOC: M SMT 08:56 | PROVIDERS: ATTEND Urology | DX: C61 Malignant neoplasm of prostate (principal) ==

== ENCOUNTER → 2019-05-23 | Outpatient (CLI) | payer MEDICARE ==
[2019-05-23 10:32] LABS: APPEARANCE, URINE CLEAR (CLEAR); BACTERIA, URINE AUTO NEGATIVE (NEGATIVE); BILIRUBIN, URINE AUTO NEGATIVE (NEGATIVE); BLOOD, URINE BLOOD NEGATIVE (NEGATIVE); COLOR, URINE YELLOW (YELLOW); GLUCOSE, URINE (UA) AUTO NEGATIVE (NEGATIVE); KETONE, URINE AUTO NEGATIVE (NEGATIVE); LEUKOCYTE ESTERASE, URINE AUTO NEGATIVE (NEGATIVE); MUCUS, URINE SMALL (NEGATIVE); NITRITE, URINE AUTO NEGATIVE (NEGATIVE); PROTEIN, URINE AUTO NEGATIVE (NEGATIVE); RBC, URINE AUTO 0 /HPF (0-3); SQUAMOUS EPITHELIAL CELL UR AU 0 /HPF (0-6); UROBILINOGEN, URINE AUTO 0.2 mg/dL (0.0-2.0); WBC, URINE AUTO 1 /HPF (0-3)
[2019-05-23 10:40] LABS: ALBUMIN 3.8 GM/DL (3.2-5.2); ALT/SGPT 22 U/L (12-78); BILIRUBIN,TOTAL 0.7 MG/DL (0.2-1.0); BLOOD UREA NITROGEN 17 MG/DL (7-18); C REACTIVE PROTEIN QUANTITATIV < 0.30 MG/DL (0.00-0.30); CALCIUM LEVEL 9.4 MG/DL (8.8-10.2); CARBON DIOXIDE LEVEL 31 MEQ/L (21-32); CHLORIDE LEVEL 107 MEQ/L (98-107); CHOLESTEROL LEVEL 189 MG/DL (<200); CHOLESTEROL RISK RATIO 2.739 (<5); CPK CREATINE PHOSPHOKINASE 126 U/L (39-308); CREATININE FOR GFR 0.82 MG/DL (0.70-1.30); GLOMERULAR FILTRATION RATE > 60.0 (>42); GLUCOSE, FASTING 87 MG/DL (70-100); HDL CHOLESTEROL 69 MG/DL (>40); LDL CHOLESTEROL 111 MG/DL (<100); NON-HDL-C 120 MG/DL; POTASSIUM SERUM 4.8 MEQ/L (3.5-5.1); SODIUM LEVEL 140 MEQ/L (136-145); TOTAL PROTEIN 6.6 GM/DL (6.4-8.2); TRIGLYCERIDES LEVEL 44 MG/DL (<150)
[2019-05-23 10:57] LABS: HEMOGLOBIN A1c 5.4 %
[2019-05-23 11:05] LABS: MALB URINE SIEMENS 18.6 MG/L; MAU/CREAT RATIO 12.6 MCG/MG (0.0-30.0)
== END ==
LOC: M SMT 08:05
PROVIDERS: ATTEND Family Medicine
DX: E78.5 Hyperlipidemia, unspecified (principal); R73.01 Impaired fasting glucose

== ENCOUNTER → 2019-10-02 | Outpatient (CLI) | payer MEDICARE | LOC: M PLALAB 08:13 | PROVIDERS: ATTEND Urology | DX: C61 Malignant neoplasm of prostate (principal) ==

== ENCOUNTER → 2020-06-01 | Outpatient (REF) | payer MEDICARE ==
[2020-06-01 10:27] LABS: BASO % 0.4 % (0.0-1.0); EOS # 0.2 10^3/uL (0.0-0.5); EOS % 3.2 % (0.0-3.0); HEMATOCRIT 49.1 % (42.0-52.0); HEMOGLOBIN 15.8 g/dl (13.5-17.5); LYMPH # 1.2 10^3/uL (1.5-5.0); LYMPH % 25.1 % (24.0-44.0); MEAN CORPUSCULAR HEMOGLOBIN 29.8 pg (27.0-33.0); MEAN CORPUSCULAR HGB CONC 32.2 g/dl (32.0-36.5); MEAN CORPUSCULAR VOLUME 92.6 fl (80.0-96.0); MONO # 0.6 10^3/uL (0.0-0.8); MONO % 12.7 % (0.0-5.0); NEUTROPHILS # 2.7 10^3/uL (1.5-8.5); PLATELET COUNT, AUTOMATED 267 10^3/uL (150-450); WHITE BLOOD COUNT 4.6 10^3/uL (4.0-10.0)
[2020-06-01 10:48] LABS: HEMOGLOBIN A1c 5.4 %
[2020-06-01 11:07] LABS: ALT/SGPT 25 U/L (12-78); BILIRUBIN,TOTAL 0.8 MG/DL (0.2-1.0); BLOOD UREA NITROGEN 16 MG/DL (7-18); CALCIUM LEVEL 9.7 MG/DL (8.8-10.2); CARBON DIOXIDE LEVEL 31 MEQ/L (21-32); CHLORIDE LEVEL 104 MEQ/L (98-107); CREATININE FOR GFR 0.88 MG/DL (0.70-1.30); FREE T4 1.02 NG/DL (0.76-1.46); GLOMERULAR FILTRATION RATE > 60.0 (>42); GLUCOSE, FASTING 94 MG/DL (70-100); POTASSIUM SERUM 4.6 MEQ/L (3.5-5.1); SODIUM LEVEL 138 MEQ/L (136-145)
[2020-06-01 12:24] LABS: PTH INTACT 22.7 PG/ML (18.5-88.0)
== END ==
LOC: M PLALAB 08:05
PROVIDERS: ATTEND Family Medicine
DX: D72.819 Decreased white blood cell count, unspecified (principal); R73.01 Impaired fasting glucose; E03.9 Hypothyroidism, unspecified; E55.9 Vitamin D deficiency, unspecified; C61 Malignant neoplasm of prostate

== ENCOUNTER → 2020-06-01 | Outpatient (REF) | payer MEDICARE | LOC: M PLALAB 10:11 | PROVIDERS: ATTEND Urology | DX: C61 Malignant neoplasm of prostate (principal) ==

== ENCOUNTER → 2020-09-04 | Outpatient (REF) | payer MEDICARE | LOC: M PLALAB 08:02 | PROVIDERS: ATTEND Urology | DX: C61 Malignant neoplasm of prostate (principal) ==

== ENCOUNTER → 2020-11-11 | Outpatient (REF) | payer MEDICARE ==
[~2020-11-11] MED LIST changes: +COQ150CH PO; +DRIS50003 PO; +GARL1000 PO; +LUTE20TA2 PO; +MULT1TAB8 PO
[2020-11-11 10:47] LABS: HEMOGLOBIN A1c 5.2 %
[2020-11-11 11:04] LABS: ALBUMIN 3.9 GM/DL (3.2-5.2); ALT/SGPT 24 U/L (12-78); BILIRUBIN,TOTAL 0.9 MG/DL (0.2-1.0); BLOOD UREA NITROGEN 16 MG/DL (7-18); CALCIUM LEVEL 9.4 MG/DL (8.8-10.2); CARBON DIOXIDE LEVEL 30 MEQ/L (21-32); CHLORIDE LEVEL 109 MEQ/L (98-107); CHOLESTEROL LEVEL 215 MG/DL (<200); CHOLESTEROL RISK RATIO 3.071 (<5); CREATININE FOR GFR 0.75 MG/DL (0.70-1.30); FREE T4 1.15 NG/DL (0.76-1.46); GLOMERULAR FILTRATION RATE > 60.0 (>42); GLUCOSE, FASTING 105 MG/DL (70-100); HDL CHOLESTEROL 70 MG/DL (>40); LDL CHOLESTEROL 130 MG/DL (<100); NON-HDL-C 145 MG/DL; POTASSIUM SERUM 4.7 MEQ/L (3.5-5.1); SODIUM LEVEL 140 MEQ/L (136-145); TOTAL PROTEIN 6.7 GM/DL (6.4-8.2); TRIGLYCERIDES LEVEL 75 MG/DL (<150)
[2020-11-11 12:11] LABS: PTH INTACT 29.1 PG/ML (18.5-88.0)
== END ==
LOC: M PLALAB 08:33
PROVIDERS: ATTEND Family Medicine
DX: E55.9 Vitamin D deficiency, unspecified (principal); E03.9 Hypothyroidism, unspecified; R73.01 Impaired fasting glucose; E78.5 Hyperlipidemia, unspecified; Z79.899 Other long term (current) drug therapy

== ENCOUNTER 2020-11-13 09:05 | Emergency (ER) | payer MEDICARE ==
[~2020-11-13] VITALS: Ht 190.5 cm; Wt 99.3 kg
[~2020-11-13 09:05] MED LIST changes: -COQ150CH PO; -DRIS50003 PO; -GARL1000 PO; -LUTE20TA2 PO; -MULT1TAB8 PO
[2020-11-13 10:04] LABS: BASO % 0.8 % (0.0-1.0); EOS # 0.1 10^3/uL (0.0-0.5); EOS % 2.1 % (0.0-3.0); HEMOGLOBIN 15.3 g/dl (13.5-17.5); LYMPH # 1.2 10^3/uL (1.5-5.0); LYMPH % 23.4 % (24.0-44.0); MEAN CORPUSCULAR HEMOGLOBIN 30.2 pg (27.0-33.0); MEAN CORPUSCULAR HGB CONC 32.6 g/dl (32.0-36.5); MEAN CORPUSCULAR VOLUME 92.9 fl (80.0-96.0); MONO # 0.6 10^3/uL (0.0-0.8); MONO % 11.9 % (2.0-8.0); NEUTROPHILS # 3.2 10^3/uL (1.5-8.5); NEUTROPHILS % 61.4 % (36.0-66.0); PLATELET COUNT, AUTOMATED 259 10^3/uL (150-450); RED BLOOD COUNT 5.06 10^6/uL (4.30-6.10); WHITE BLOOD COUNT 5.2 10^3/uL (4.0-10.0)
[2020-11-13] MEDS ORDERED: ISOVUE-370 76% 100ML VIAL As Ordered ONE (10:45)
--- NOTE | 2020-11-13 11:24 | REP ---
INDICATION: palpable bulge btw LUQ/LLQ known hernia, concern strangulat COMPARISON: 07/17/2018. TECHNIQUE: CT Scan of the abdomen and pelvis was performed with intravenous administration of 100 cc of Isovue 370, without oral contrast. Sagittal and coronal reconstruction images are performed. FINDINGS: Lung bases: Unremarkable. Liver: Normal Gallbladder: Tiny gallstones are seen in the dependent portion of the gallbladder. Spleen: Normal. Adrenals: Left adrenal gland thickening is unchanged. Pancreas: Normal. Kidneys: Normal. Small and large bowel: There are few sigmoid diverticula present. There is no free air or obstruction. In the left lower quadrant there is defect in the deep abdominal wall musculature measuring about 3 cm in diameter. There is herniation of a loop of lower left colon into the hernia sac. There is mild edema of the fat in the hernia sac. The defect does not extend through the external oblique aponeurosis. Free fluid: None. Abdominal aorta: No aneurysm or dissection. Adenopathy: None. Appendix: Not inflamed. Osseous structures: There are degenerative changes of the spine without compression deformity. Pelvis: No mass. There is a small diverticulum at the base of the bladder on the left. IMPRESSION: There is no free air or obstruction. In the left lower quadrant there is defect in the deep abdominal wall musculature measuring about 3 cm in diameter. There is herniation of a loop of lower left colon into the hernia sac. There is mild edema of the fat in the hernia sac, and therefore I cannot exclude some degree of strangulation. The defect does not extend through the external oblique aponeurosis. <Electronically signed by Amarjit Solis > 11/13/20 [id number]
[2020-11-13 11:57] LABS: ALBUMIN 3.5 GM/DL (3.2-5.2); ALT/SGPT 23 U/L (12-78); BILIRUBIN,DIRECT 0.2 MG/DL (0.0-0.2); BILIRUBIN,TOTAL 0.8 MG/DL (0.2-1.0); BLOOD UREA NITROGEN 14 MG/DL (7-18); CALCIUM LEVEL 8.9 MG/DL (8.8-10.2); CARBON DIOXIDE LEVEL 27 MEQ/L (21-32); CHLORIDE LEVEL 107 MEQ/L (98-107); CREATININE FOR GFR 0.69 MG/DL (0.70-1.30); GLOMERULAR FILTRATION RATE > 60.0 (>42); GLUCOSE, FASTING 89 MG/DL (70-100); LIPASE 126 U/L (73-393); POTASSIUM SERUM 3.9 MEQ/L (3.5-5.1); SODIUM LEVEL 138 MEQ/L (136-145); TOTAL PROTEIN 6.8 GM/DL (6.4-8.2)
[2020-11-13 13:58] VITALS: BP 156/92
[2020-11-13 14:30] LABS: RSV AMPLIFICATION NEGATIVE (NEGATIVE)
--- NOTE | 2020-11-15 09:22 | CR ---
CONSULTATION DATE: 11/13/2020 REQUESTING: Emergency Department REASON FOR CONSULTATION: Left lower quadrant incisional hernia. HISTORY OF PRESENT ILLNESS: The patient is a 75-year-old man who reports having had bilateral inguinal herniorrhaphies done as an open procedure back in 2004. He reports having had a robotic radical prostatectomy in February of 2015. He indicates that over the last couple years, he has noticed bulges in the left and right lower quadrants at what he perceives to be the sites of his prior robotic surgery. He has had a definite bulge in the left lower quadrant that occurs whenever he is more physically active. Initially this had reduced spontaneously but recently he has been having to push this back in or massage it back in more frequently. Over the last couple of days, he has had more discomfort than usual. He reports that yesterday he had a day where he had tried to reduce this several times lying on the floor and curled up to try to reduce this. He came to the emergency department on the morning of the 13 of November at approximately 9 o'clock complaining of abdominal pain with some nausea and a bulge still in the left lower quadrant. He underwent evaluation with a CT scan of the abdomen and pelvis which confirmed a hernia in the left lower quadrant. This contained a loop of the colon with some mild edema of the fat within the hernia. Some sigmoid diverticulosis was noted. There was no evidence of a definite hernia on the right. The PA in the emergency department had attempted to reduce this and believes it is now reduced and his abdominal discomfort and nausea has resolved. I was consulted to evaluate the patient regarding the need for surgical repair of his hernia. ALLERGIES: The patient reports allergies to basil, the herb, tape, celecoxib and ciprofloxacin. MEDICATIONS: As reported in the emergency department include Irbesartan 75 mg p.o. twice daily and levothyroxine 75 mcg p.o. daily. SURGICAL HISTORY: Significant for what sounds like a pectus excavatum repair at age 14. He has had bilateral inguinal hernia repairs. He has had bilateral total shoulders with the left in 2015 and the right in 2001. His radical prostatectomy was in February of 2015. He has had an appendectomy. He has had right and left knee arthroscopies. He has had several colonoscopies. MEDICAL HISTORY: Significant for hypertension, thyroid disease and prostate cancer. He required no further treatments beyond his prostatectomy. FAMILY HISTORY: The patient's father is from heart disease and his mother from hypertension. SOCIAL HISTORY: The patient is a former smoker who quit long ago and said only smoked for 3-1/2 years. He reports infrequent alcohol intake. He is and reports that he is generally fit and walks typically four miles per day. REVIEW OF SYSTEMS: Reveals no history of chest pain or palpitations. He denies cough, wheezing or sputum production. He has had no history of DVT or pulmonary embolus. He denies chronic severe headache, seizure or stroke. He has no new or acute orthopedic issues. PHYSICAL EXAMINATION: General: Reveals a fairly fit appearing, older man lying quietly on the hospital stretcher. Height is recorded as 75 inches with a weight of 99 kilograms. He is alert and oriented. Skin: Warm and dry. HEENT: Sclerae are anicteric. Neck: Supple without mass or bruit. Heart: Shows a regular rate and rhythm. Lungs: Generally clear. He does have some depression of the lower half of the sternum. Abdomen: Flat. He has bowel sounds present. He has old bilateral inguinal hernia scars. He has a couple of small scars that are hard to pick out in the right and left lower quadrants. There is no definite hernia bulge currently. The abdomen is soft and without significant tenderness. Extremities: Show no peripheral edema and he has palpable radial and pedal pulses. LABORATORY STUDIES: CBC with a white count of 5, hemoglobin 15, hematocrit 47 and a platelet count of 259,000. Differential count shows 61 neutrophils, 23 lymphocytes and 12 monocytes. Chemistry profile showed normal electrolytes with a BUN of 14, creatinine 0.7 and a glucose of 89. Liver function tests, protein and albumin were all normal. IMAGING STUDIES: I reviewed personally. He has definite hernia noted in the low left lower quadrant. This contained a small knuckle of colon. I do not see a definite hernia on the right although he indicated that he thought he had felt one there previously. IMPRESSION: 1. Incisional hernia, left lower quadrant, now reduced. 2. Hypothyroidism. 3. Hypertension. 4. Status post prostatectomy for prostate cancer. PLAN: The patient was counseled that his hernia is now reduced. He reports that it is becoming more difficult to reduce when it protrudes and I believe this is a good reason to try to get him in soon for a repair of his hernia. I have recommended that we proceed with a robotic approach to his hernia. This would allow us to suture the defect internally and then apply mesh internally as well. It also has the benefit of allowing us to explore the opposite for evidence of a matching hernia and to repair this at the same time if necessary. The patient was counseled that we would anticipate doing this on an ambulatory basis. I have some time available in the OR schedule on Monday, the 17 of November. We will obtain a COVID test here in the emergency department. He will follow up in my office on the to sign a consent form and review any other issues regarding the surgery and we will schedule him for a robotic-assisted repair of his hernia or hernias for Monday, the . BLAYNE
[2020-11-16] MEDS ORDERED: COQ150CH PO (09:56)
[2020-11-16] MEDS ORDERED: LUTE20TA2 PO (09:56)
[2020-11-16] MEDS ORDERED: DRIS50003 PO (09:57)
[2020-11-16] MEDS ORDERED: GARL1000 PO (09:57)
[2020-11-16] MEDS ORDERED: MULT1TAB8 PO (09:58)
== END 2020-11-13 14:01 | disposition home or self-care (01) ==
LOC: M ED 09:05
DX: K40.30 Unilateral inguinal hernia, with obstruction, without gangrene, not specified as recurrent (principal); I10 Essential (primary) hypertension; E03.9 Hypothyroidism, unspecified; Z85.46 Personal history of malignant neoplasm of prostate; Z90.79 Acquired absence of other genital organ(s); Z88.1 Allergy status to other antibiotic agents; Z88.8 Allergy status to other drugs, medicaments and biological substances
CPT/HCPCS: 36415; 74177; 80047; 80048; 80076; 83605; 83690; 85025; 87631; 99284; Q9967

== ENCOUNTER 2020-11-17 06:12 | Day surgery (SDC) | payer MEDICARE ==
[~2020-11-17] VITALS: Ht 190.5 cm; Wt 95.3 kg
[~2020-11-17 06:12] MED LIST changes: +COQ150CH PO; +DRIS50003 PO; +GARL1000 PO; +LUTE20TA2 PO; +MULT1TAB8 PO
[2020-11-17] MEDS ORDERED: LR 1,000 ML IV ONE (06:30)
[2020-11-17] MEDS ORDERED: ONDANSETRON 4MG/2ML VIAL As Ordered ONE (07:08)
[2020-11-17] MEDS ORDERED: dexameTHASONE 4 MG/ML 1ML VIAL (J1100 PER 1MG) As Ordered ONE (07:08)
[2020-11-17] MEDS ORDERED: fentaNYL 250 MCG/5 ML INJECTION (J3010) As Ordered ONE (07:08)
[2020-11-17] MEDS ORDERED: ROCURONIUM BROMIDE 50 MG/5 ML VIAL As Ordered ONE ×2 (07:08→08:05)
[2020-11-17] MEDS ORDERED: MIDAZOLAM INJ 2MG/2ML VIAL (J2250 PER 1MG) As Ordered ONE (07:08)
[2020-11-17] MEDS ORDERED: propofoL 200 MG/20 ML VIAL As Ordered ONE (07:08)
[2020-11-17] MEDS ORDERED: LIDOCAINE 2% 100MG/5ML SDV (FOR ANES.) As Ordered ONE (07:08)
[2020-11-17] MEDS ORDERED: ACETAMINOPHEN 1000MG 100ML IV BTL (OFIRMEV) (J0131 PER 10MG) As Ordered ONE (07:15)
[2020-11-17] MEDS ORDERED: BUPIVACAINE HCL 0.25% 30ML VIAL As Ordered ONE (07:16)
[2020-11-17] MEDS ORDERED: ePHEDrine SULFATE 25 MG/5 ML(5MG/ML) SYRINGE As Ordered ONE (07:59)
[2020-11-17] MEDS ORDERED: SUGAMMADEX SODIUM 500 MG/5 ML VIAL (BRIDION) As Ordered ONE (08:06)
[2020-11-17] MEDS ORDERED: ONDANSETRON 4MG/2ML VIAL IV PRN (11:00)
[2020-11-17] MEDS ORDERED: LR 1,000 ML IV SCH (11:00)
[2020-11-17] MEDS ORDERED: METOCLOPRAMIDE INJ 10MG/2ML VIAL (J2765 PER 1) IV PRN (11:00)
[2020-11-17] MEDS: fentaNYL 100 MCG/2 ML INJECTION (J3010) IV PRN ×4 (11:14→11:29)
[2020-11-17] MEDS: oxyCODONE 5MG TAB PO PRN ×2 (11:14→11:44)
[2020-11-17] MEDS ORDERED: NORCO, ANEXSIA 5/325MG TABLET (HYDROcodone/ACETAMINOPHEN) PO PRN (11:20)
[2020-11-17] MEDS ORDERED: IBUPROFEN 400MG TAB PO PRN (11:20)
[2020-11-17] MEDS ORDERED: ACETAMINOPHEN TAB 650MG DOSE (2X325MG) PO PRN (11:20)
[2020-11-17] MEDS: MORPHINE 2 MG/ML 1ML VIAL (J2270) IV PRN ×3 (11:34→11:47)
[2020-11-17 13:25] VITALS: BP 142/68
[2020-11-17] MEDS ORDERED: HYDR-3715 PO (17:02)
--- NOTE | 2020-11-18 00:28 | ECGEPIP ---
[facility] Test Date: 2020-11-17 Pat Name: BUFFALO MOHAN Department: Room: - Gender: Male Medical Biller Coder: KOLE : 1945 Requested By: Aneudy Davey Order Number: [id number] Reading MD: Lobo Harvey Measurements Intervals [place] Rate: 76 P: 55 MN: 220 QRS: -16 QRSD: 102 T: 48 QT: 398 QTc: 447 Interpretive Statements Sinus rhythm with 1st degree AV block Possible Left atrial enlargement No prior tracing in the system Electronically Signed on 11-18-2020 0:27:59 EDT by Lobo Harvey
--- NOTE | 2020-11-18 09:35 | RO ---
OPERATIVE NOTE DATE OF OPERATION: 11/17/2020 PREOPERATIVE DIAGNOSIS: Left lower quadrant incisional hernia. POSTOPERATIVE DIAGNOSIS: Left and right lower quadrant incisional hernias with intraabdominal adhesions. PROCEDURE PERFORMED: Robotic-assisted laparoscopic repair of right and left lower quadrant incisional hernias with mesh. MESH UTILIZED: [employer]ien ProGrip mesh, reference code [id number], lot number [id number]. SURGEON: Ish Caballero MD CONSUMER INSIGHTS SPECIALIST: SYLVIE Del Valle. Marnie's assistance was essential for management of the di Christopher Xi robot with placement of ports, change of instruments, passage of sutures and mesh, and closure of the incisions. ANESTHESIA: General. INDICATIONS FOR THE PROCEDURE: The patient is a 75-year-old man who had undergone a robotic-assisted laparoscopic prostatectomy several years ago. He noted a bulge in the left lower quadrant particularly on the left but also a smaller bulge on the right. These were intermittent. He was seen in the emergency department on the 13 of November with an incarcerated hernia which was then reduced. He is now for repair of his left and possibly right lower quadrant incisional hernias. OPERATIVE PROCEDURE: The patient was brought to the operating room and placed on the table in a supine position. He was placed under general endotracheal anesthesia. The patient's abdomen was prepped and draped in a sterile fashion. A 0.25% Marcaine was infiltrated at each of the trocar sites as needed. A short midline supraumbilical midline incision was made and a Veress needle was inserted. After a positive hanging drop test, the abdomen was inflated with carbon dioxide gas. An 8-mm robotic port was placed over the scope and advanced through the abdominal wall without difficulty. Initial examination showed normal-appearing small bowel. There was evidence for some scarring in the pelvis anteriorly. He was tilted to 15 degrees of Trendelenburg. Two additional 8-mm ports were placed in the upper abdomen. The patient cart of the [employer] Xi robot was then brought into position and docked to the midline port with the endoscope arm. Targeting took place in the left lower quadrant and a cauterizing scissor and fenestrated bipolar were then inserted. I moved to the control console to proceed with the operation. Initially, I performed a more thorough inspection of the lower abdomen and pelvis. He had a definite hernia defect low in the left lower quadrant consistent with a trocar site herniation. There was an open hernia pouch about 2 cm across. There was some scarring in the left inguinal area with what appeared to be a mesh plug that was very firm to probing. There was some scarring in the midline consistent with his prior prostatectomy. There was also some scarring noted in the right inguinal hernia with some sutures showing through, presumably sutures in the inguinal floor. On the right-hand side, there was a soft spot identified by palpation with the grasper. This was just about the mirror image of the definite hernia on the left-hand side. I elected to proceed with repair of the left side and then to explore the right. A peritoneal flap was developed on the left beginning superior and medial to the hernia sac. The peritoneum and preperitoneal fat were elevated off the underlying fascia. The hernia sac was invaginated into the abdomen with some attached fat. There was what appeared to be a linear split in the fascia about 3 cm in length by 1.5-2 cm in width. The hernia defect was closed with a running suture of 1-0 STRATAFIX. The piece of ProGrip mesh was then selected and a roughly 5 x 7 cm patch was fashioned from this and inserted into the abdomen. This was placed over the sutured fascial defect with the adhering side facing the fascia. This was suture circumferentially in place with a 2-0 V-Loc suture. The peritoneal flap was then also closed with a running suture of 2-0 V-Loc. I then turned attention to the right side where a similar peritoneal flap was developed. There was a large amount of fatty tissue that protruded through a very similar sized fascial defect and this was reduced back into the abdomen. The fascia was closed similarly with a running suture of 1-0 STRATAFIX. A second mesh patch approximately 6 x 7 cm in size was fashioned from the same ProGrip mesh. This was sutured in place over the sutured fascial defect with a running 2-0 V-Loc, and the peritoneal flap was then closed. The patient tolerated the procedure well without apparent complication. He was returned to a flat position. The robotic instruments were removed and the robot was undocked. The abdomen was deflated and the trocars were removed. Marnie Elias then proceeded to close the incisions with buried 4-0 Vicryl and Steri-Strips. The patient was awakened in the operating room, extubated, and moved to the recovery room in stable condition.
== END 2020-11-17 13:58 | disposition home or self-care (01) ==
LOC: M SDC 06:12
PROVIDERS: ATTEND Surgery
DX: K43.2 Incisional hernia without obstruction or gangrene (principal); I10 Essential (primary) hypertension; E03.9 Hypothyroidism, unspecified; G60.9 Hereditary and idiopathic neuropathy, unspecified; Z85.46 Personal history of malignant neoplasm of prostate; Z92.3 Personal history of irradiation; Z79.899 Other long term (current) drug therapy; Z91.018 Allergy to other foods; Z88.1 Allergy status to other antibiotic agents; Z88.8 Allergy status to other drugs, medicaments and biological substances
CPT/HCPCS: 49654; 93005; C1781; J0131; J1100; J2250; J2270; J2405; J3010; S2900

== ENCOUNTER → 2021-04-08 | Outpatient (CLI) | payer MEDICARE ==
[~2021-04-08] MED LIST changes: +HYDR-3715 PO
== END ==
LOC: M PLALAB 08:02
PROVIDERS: ATTEND Urology
DX: Z85.46 Personal history of malignant neoplasm of prostate (principal)

== ENCOUNTER → 2021-05-21 | Outpatient (REF) | payer MEDICARE | LOC: M SMT 15:34 | PROVIDERS: ATTEND Urology | DX: C61 Malignant neoplasm of prostate (principal) ==

== ENCOUNTER → 2021-05-21 | Outpatient (CLI) | payer MEDICARE ==
[2021-05-21 16:29] LABS: MALB URINE SIEMENS 21.3 MG/L; MAU/CREAT RATIO 14.8 MCG/MG (0.0-30.0)
[2021-05-21 16:39] LABS: ALBUMIN 3.7 GM/DL (3.2-5.2); ALT/SGPT 32 U/L (12-78); BILIRUBIN,TOTAL 0.8 MG/DL (0.2-1.0); BLOOD UREA NITROGEN 17 MG/DL (7-18); CALCIUM LEVEL 9.2 MG/DL (8.8-10.2); CARBON DIOXIDE LEVEL 30 MEQ/L (21-32); CHLORIDE LEVEL 107 MEQ/L (98-107); CHOLESTEROL LEVEL 203 MG/DL (<200); CREATININE FOR GFR 0.97 MG/DL (0.70-1.30); FREE T4 1.19 NG/DL (0.76-1.46); GLOMERULAR FILTRATION RATE > 60.0 (>42); GLUCOSE, FASTING 92 MG/DL (70-100); HDL CHOLESTEROL 70 MG/DL (>40); LDL CHOLESTEROL 123 MG/DL (<100); NON-HDL-C 133 MG/DL; POTASSIUM SERUM 5.5 MEQ/L (3.5-5.1); SODIUM LEVEL 140 MEQ/L (136-145); TRIGLYCERIDES LEVEL 52 MG/DL (<150)
[2021-05-21 16:52] LABS: HEMOGLOBIN A1c 5.3 %
== END ==
LOC: M PLALAB 09:31
PROVIDERS: ATTEND Family Medicine
DX: R73.01 Impaired fasting glucose (principal); E78.5 Hyperlipidemia, unspecified; C61 Malignant neoplasm of prostate

== ENCOUNTER → 2021-06-23 | Outpatient (CLI) | payer MEDICARE | LOC: M LABSMTC 10:41 | PROVIDERS: ATTEND Pediatrics | DX: Z20.822 Contact with and (suspected) exposure to COVID-19 (principal) | CPT/HCPCS: C9803; U0003 ==

== ENCOUNTER → 2021-08-24 | Outpatient (CLI) | payer MEDICARE | LOC: M PLALAB 09:43 | PROVIDERS: ATTEND Urology | DX: C61 Malignant neoplasm of prostate (principal) ==

== ENCOUNTER → 2021-11-24 | Outpatient (CLI) | payer MEDICARE | LOC: M PLALAB 10:53 | PROVIDERS: ATTEND Urology | DX: C61 Malignant neoplasm of prostate (principal) ==

== ENCOUNTER → 2022-02-21 | Outpatient (CLI) | payer MEDICARE | LOC: M PLALAB 08:41 | PROVIDERS: ATTEND Urology | DX: C61 Malignant neoplasm of prostate (principal) ==

== ENCOUNTER → 2022-04-12 | Outpatient (CLI) | payer MEDICARE ==
[2022-04-12 14:30] LABS: BASO % 0.7 % (0.0-1.0); EOS # 0.1 10^3/uL (0.0-0.5); EOS % 1.5 % (0.0-3.0); HEMATOCRIT 49.2 % (42.0-52.0); HEMOGLOBIN 16.1 g/dl (13.5-17.5); LYMPH # 1.2 10^3/uL (1.5-5.0); MEAN CORPUSCULAR HEMOGLOBIN 30.5 pg (27.0-33.0); MEAN CORPUSCULAR HGB CONC 32.7 g/dl (32.0-36.5); MEAN CORPUSCULAR VOLUME 93.2 fl (80.0-96.0); MONO # 0.6 10^3/uL (0.0-0.8); MONO % 9.3 % (2.0-8.0); NEUTROPHILS # 4.2 10^3/uL (1.5-8.5); PLATELET COUNT, AUTOMATED 253 10^3/uL (150-450); RED BLOOD COUNT 5.28 10^6/uL (4.30-6.10); WHITE BLOOD COUNT 6.1 10^3/uL (4.0-10.0)
[2022-04-12 15:18] LABS: ALT/SGPT 25 U/L (12-78); BILIRUBIN,TOTAL 0.7 MG/DL (0.2-1.0); BLOOD UREA NITROGEN 14 MG/DL (7-18); CALCIUM LEVEL 9.8 MG/DL (8.8-10.2); CARBON DIOXIDE LEVEL 29 MEQ/L (21-32); CHLORIDE LEVEL 104 MEQ/L (98-107); GLOMERULAR FILTRATION RATE > 60.0 (>42); GLUCOSE, FASTING 90 MG/DL (70-100); MAGNESIUM LEVEL 2.2 MG/DL (1.8-2.4); NT-PRO BNP 34 PG/ML (<450); POTASSIUM SERUM 4.6 MEQ/L (3.5-5.1); SODIUM LEVEL 137 MEQ/L (136-145); TOTAL PROTEIN 6.8 GM/DL (6.4-8.2)
[2022-04-12 15:44] LABS: PTH INTACT 20.3 PG/ML (18.5-88.0); TOTAL 25(OH) VITAMIN D 64.3 NG/ML (30.0-100.0)
[2022-04-12 15:56] LABS: HEMOGLOBIN A1c 5.8 %
== END ==
LOC: M PLALAB 09:01
PROVIDERS: ATTEND Family Medicine
DX: D72.819 Decreased white blood cell count, unspecified (principal); I10 Essential (primary) hypertension; E55.9 Vitamin D deficiency, unspecified; R73.01 Impaired fasting glucose; Z79.899 Other long term (current) drug therapy

== ENCOUNTER → 2022-05-23 | Outpatient (CLI) | payer MEDICARE | LOC: M PLALAB 08:23 | PROVIDERS: ATTEND Urology | DX: C61 Malignant neoplasm of prostate (principal) ==

== ENCOUNTER → 2022-08-29 | Outpatient (CLI) | payer MEDICARE | LOC: M PLALAB 07:57 | PROVIDERS: ATTEND Urology | DX: C61 Malignant neoplasm of prostate (principal) ==

== ENCOUNTER → 2022-10-24 | Outpatient (CLI) | payer MEDICARE ==
[2022-10-24 10:32] LABS: BASO % 0.5 % (0.0-1.0); EOS # 0.1 10^3/uL (0.0-0.5); EOS % 2.2 % (0.0-3.0); HEMATOCRIT 49.2 % (42.0-52.0); HEMOGLOBIN 15.8 g/dl (13.5-17.5); LYMPH # 1.1 10^3/uL (1.5-5.0); LYMPH % 19.4 % (24.0-44.0); MEAN CORPUSCULAR HGB CONC 32.1 g/dl (32.0-36.5); MEAN CORPUSCULAR VOLUME 93.5 fl (80.0-96.0); MONO # 0.6 10^3/uL (0.0-0.8); MONO % 10.3 % (2.0-8.0); NEUTROPHILS # 3.9 10^3/uL (1.5-8.5); NEUTROPHILS % 67.1 % (36.0-66.0); PLATELET COUNT, AUTOMATED 265 10^3/uL (150-450); RED BLOOD COUNT 5.26 10^6/uL (4.30-6.10); WHITE BLOOD COUNT 5.8 10^3/uL (4.0-10.0)
[2022-10-24 11:03] LABS: ALBUMIN 3.9 G/DL (3.2-5.2); ALKALINE PHOSPHATASE 97 U/L (46-116); ALT/SGPT 24 U/L (7.0-40); AST/SGOT 22 U/L (<34); BILIRUBIN,TOTAL 1.8 MG/DL (0.3-1.2); BLOOD UREA NITROGEN 18 MG/DL (9-23); CALCIUM LEVEL 8.9 MG/DL (8.3-10.6); CARBON DIOXIDE LEVEL 28 MMOL/L (20-31); CHLORIDE LEVEL 105 MMOL/L (98-107); CREATININE FOR GFR 0.87 MG/DL (0.70-1.30); FERRITIN 98.4 NG/ML (10.5-307.3); FREE T4 1.21 NG/DL (0.89-1.76); GLOMERULAR FILTRATION RATE > 60.0 (>42); GLUCOSE, FASTING 90 MG/DL (74-106); POTASSIUM SERUM 4.7 MMOL/L (3.5-5.1); SODIUM LEVEL 136 MMOL/L (136-145); THYROID STIMULATING HORMONE 2.732 uIU/ML (0.55-4.78); TOTAL PROTEIN 6.6 G/DL (5.7-8.2)
[2022-10-24 11:05] LABS: HEMOGLOBIN A1c 5.2 % (4.0-6.0)
[2022-10-24 11:06] LABS: THYROID PEROXIDASE ANTIBODY > 1300.0 U/ML (<60.0)
[2022-10-25 08:09] LABS: APOLIPOPROTEIN B/A-1 RATIO 0.7 ratio (0.0-0.7); INSULIN LEVEL 11.9 uIU/mL (2.6-24.9)
== END ==
LOC: M PLALAB 08:09
PROVIDERS: ATTEND Family Medicine
DX: E03.9 Hypothyroidism, unspecified (principal); I10 Essential (primary) hypertension; R73.03 Prediabetes; E78.5 Hyperlipidemia, unspecified

== ENCOUNTER → 2022-11-01 | Outpatient (CLI) | payer MEDICARE ==
[2022-11-01 14:42] LABS: ALBUMIN 4.1 G/DL (3.2-5.2); BILIRUBIN,DIRECT 0.4 MG/DL (<0.4); BILIRUBIN,TOTAL 1.6 MG/DL (0.3-1.2); TOTAL PROTEIN 6.7 G/DL (5.7-8.2)
[2022-11-02 20:10] LABS: IMMUNOTYPING SERUM IGA SO 198 mg/dL (61-437); IMMUNOTYPING SERUM IGM SO 53 mg/dL (15-143)
== END ==
LOC: M PLALAB 10:00
PROVIDERS: ATTEND Family Medicine
DX: R17 Unspecified jaundice (principal)

== ENCOUNTER → 2022-11-07 | Outpatient (CLI) | payer MEDICARE | LOC: M WHC 09:25 | PROVIDERS: ATTEND Family Medicine | DX: R17 Unspecified jaundice (principal) ==

== ENCOUNTER → 2022-11-21 | Outpatient (CLI) | payer MEDICARE | LOC: M PLALAB 09:02 | PROVIDERS: ATTEND Family Medicine | DX: R17 Unspecified jaundice (principal); C61 Malignant neoplasm of prostate ==

== ENCOUNTER → 2022-11-21 | Outpatient (CLI) | payer MEDICARE | LOC: M PLALAB 08:59 | PROVIDERS: ATTEND Urology | DX: C61 Malignant neoplasm of prostate (principal) ==

== ENCOUNTER → 2023-01-04 | Outpatient (CLI) | payer MEDICARE ==
[2023-01-04 11:25] LABS: ALBUMIN 4.1 G/DL (3.2-5.2); BILIRUBIN,DIRECT 0.3 MG/DL (<0.4); BILIRUBIN,TOTAL 1.3 MG/DL (0.3-1.2); TOTAL PROTEIN 6.9 G/DL (5.7-8.2)
== END ==
LOC: M PLALAB 07:35
PROVIDERS: ATTEND Physician Assistant
DX: K80.20 Calculus of gallbladder without cholecystitis without obstruction (principal)

== ENCOUNTER → 2023-05-26 | Outpatient (CLI) | payer MEDICARE | LOC: M PLALAB 07:49 | PROVIDERS: ATTEND Urology | DX: Z85.46 Personal history of malignant neoplasm of prostate (principal) ==

== ENCOUNTER → 2023-07-10 | Outpatient (REF) | payer MEDICARE | LOC: M SFHCPLAZ 15:01 | PROVIDERS: ATTEND Family Medicine | DX: R17 Unspecified jaundice (principal); D72.819 Decreased white blood cell count, unspecified ==

== ENCOUNTER → 2023-07-19 | Outpatient (CLI) | payer MEDICARE ==
[2023-07-19 12:30] LABS: ALBUMIN 3.8 G/DL (3.2-5.2); BILIRUBIN,DIRECT 0.3 MG/DL (<0.4); TOTAL PROTEIN 6.7 G/DL (5.7-8.2)
[2023-07-22 00:06] LABS: IMMUNOTYPING SERUM IGA SO 198 mg/dL (61-437); IMMUNOTYPING SERUM IGM SO 64 mg/dL (15-143)
== END ==
LOC: M PLALAB 07:50
PROVIDERS: ATTEND Family Medicine
DX: R17 Unspecified jaundice (principal); D72.819 Decreased white blood cell count, unspecified

== ENCOUNTER → 2023-07-24 | Outpatient (REF) | payer MEDICARE | LOC: M SFHCPLAZ 09:59 | PROVIDERS: ATTEND Family Medicine | DX: R73.01 Impaired fasting glucose (principal); E55.9 Vitamin D deficiency, unspecified ==

== ENCOUNTER → 2023-08-28 | Outpatient (CLI) | payer MEDICARE | LOC: M PLALAB 08:00 | PROVIDERS: ATTEND Urology | DX: Z85.46 Personal history of malignant neoplasm of prostate (principal) ==

== ENCOUNTER → 2023-11-24 | Outpatient (CLI) | payer MEDICARE | LOC: M PLALAB 07:38 | PROVIDERS: ATTEND Urology | DX: Z85.49 Personal history of malignant neoplasm of other male genital organs (principal) ==

== ENCOUNTER → 2024-02-20 | Outpatient (CLI) | payer MEDICARE ==
[2024-02-20 10:27] LABS: ALBUMIN 3.9 G/DL (3.2-5.2); ALKALINE PHOSPHATASE 111 U/L (46-116); ALT/SGPT 27 U/L (7.0-40); AST/SGOT 16 U/L (<34); BILIRUBIN,TOTAL 1.2 MG/DL (0.3-1.2); BLOOD UREA NITROGEN 19 MG/DL (9-23); CARBON DIOXIDE LEVEL 30 MMOL/L (20-31); CHLORIDE LEVEL 106 MMOL/L (98-107); CHOLESTEROL LEVEL 189 MG/DL (<200); CHOLESTEROL RISK RATIO 3.61 (<5); CREATININE FOR GFR 0.87 MG/DL (0.70-1.30); GLOMERULAR FILTRATION RATE > 60.0 (>42); GLUCOSE, FASTING 104 MG/DL (74-106); HDL CHOLESTEROL 52.3 MG/DL (>40); LDL CHOLESTEROL 127.1 MG/DL (<100); NON-HDL-C 136.7 MG/DL; POTASSIUM SERUM 5.2 MMOL/L (3.5-5.1); SODIUM LEVEL 142 MMOL/L (136-145); TOTAL PROTEIN 6.6 G/DL (5.7-8.2); TRIGLYCERIDES LEVEL 48 MG/DL (<150)
[2024-02-20 10:30] LABS: PTH INTACT 27.9 PG/ML (18.5-88.0)
[2024-02-20 10:31] LABS: THYROID STIMULATING HORMONE 5.529 uIU/ML (0.55-4.78)
[2024-02-20 10:32] LABS: TOTAL 25(OH) VITAMIN D 71.7 NG/ML (20.0-100.0)
[2024-02-20 10:37] LABS: HEMOGLOBIN A1c 5.4 % (4.0-6.0)
== END ==
LOC: M PLALAB 08:12
PROVIDERS: ATTEND Family Medicine
DX: R73.01 Impaired fasting glucose (principal); E55.9 Vitamin D deficiency, unspecified; Z79.899 Other long term (current) drug therapy

== ENCOUNTER → 2024-04-11 | Outpatient (CLI) | payer MEDICARE | LOC: M PLALAB 07:26 | PROVIDERS: ATTEND Urology | DX: C61 Malignant neoplasm of prostate (principal) ==

== ENCOUNTER → 2024-06-03 | Outpatient (CLI) | payer MEDICARE ==
[2024-06-03 14:28] LABS: BASO % 0.7 % (0.0-1.0); EOS # 0.1 10^3/uL (0.0-0.5); EOS % 1.8 % (0.0-3.0); HEMATOCRIT 47.9 % (42.0-52.0); HEMOGLOBIN 15.9 g/dl (13.5-17.5); LYMPH # 1.4 10^3/uL (1.5-5.0); MEAN CORPUSCULAR HEMOGLOBIN 31.2 pg (27.0-33.0); MEAN CORPUSCULAR HGB CONC 33.2 g/dl (32.0-36.5); MEAN CORPUSCULAR VOLUME 93.9 fl (80.0-96.0); MONO # 0.7 10^3/uL (0.0-0.8); MONO % 11.8 % (2.0-8.0); NEUTROPHILS # 3.7 10^3/uL (1.5-8.5); NEUTROPHILS % 61.4 % (36.0-66.0); PLATELET COUNT, AUTOMATED 266 10^3/uL (150-450)
[2024-06-03 14:42] LABS: HEMOGLOBIN A1c 5.4 % (4.0-6.0)
[2024-06-03 14:54] LABS: ALBUMIN 3.9 G/DL (3.2-5.2); ALKALINE PHOSPHATASE 112 U/L (40-129); ALT/SGPT 25 U/L (7.0-40); AST/SGOT 22 U/L (<34); BILIRUBIN,TOTAL 1.2 MG/DL (0.3-1.2); BLOOD UREA NITROGEN 17 MG/DL (9-23); CARBON DIOXIDE LEVEL 30 MMOL/L (20-31); CHLORIDE LEVEL 105 MMOL/L (98-107); CHOLESTEROL LEVEL 195 MG/DL (<200); CHOLESTEROL RISK RATIO 3.36 (<5); CREATININE FOR GFR 0.82 MG/DL (0.70-1.30); GLOMERULAR FILTRATION RATE > 60.0 (>42); GLUCOSE, FASTING 89 MG/DL (74-106); LDL CHOLESTEROL 120.6 MG/DL (<100); POTASSIUM SERUM 4.9 MMOL/L (3.5-5.1); PTH INTACT 43.2 PG/ML (18.5-88.0); SODIUM LEVEL 139 MMOL/L (136-145); TOTAL PROTEIN 6.9 G/DL (5.7-8.2); TRIGLYCERIDES LEVEL 82 MG/DL (<150)
[2024-06-03 14:55] LABS: FERRITIN 108.2 NG/ML (10.5-307.3); TOTAL 25(OH) VITAMIN D 75.7 NG/ML (20.0-100.0)
[2024-06-03 14:56] LABS: FREE T4 1.24 NG/DL (0.89-1.76)
[2024-06-04 12:11] LABS: INSULIN LEVEL 7.3 uIU/mL (<=18.4)
[2024-06-04 14:32] LABS: BERMUDA GRASS IGE < 0.10 kU/L (<0.10); BIRCH IGE < 0.10 kU/L (<0.10); COMMON RAGWEED SHORT IGE < 0.10 kU/L (<0.10); D001 IGE D PTERONYSSINUS < 0.10 kU/L (<0.10); D002-IGE D FARINAE < 0.10 kU/L (<0.10); E001-IGE CAT DANDER < 0.10 kU/L (<0.10); E005-IGE DOG DANDER < 0.10 kU/L (<0.10); ELM IGE < 0.10 kU/L (<0.10); I006 IGE COCKROACH < 0.10 kU/L (<0.10); IMMUNOGLOBULIN E FOR ALLERGENS 34 kU/L (<OR=114); M002 IGE CLADOSPORIUM HERBARU < 0.10 kU/L (<0.10); M003 IGE ASPERGILLUS FUMIGATU < 0.10 kU/L (<0.10); M006 IGE ALTERNIA ALTERNATA < 0.10 kU/L (<0.10); M1-PENICILLIUM NOTATUM < 0.10 kU/L (<0.10); MOUSE URINE IGE < 0.10 kU/L (<0.10); MUGWORT IGE < 0.10 kU/L (<0.10); OAK IGE < 0.10 kU/L (<0.10); ROUGH PIGWEED IGE < 0.10 kU/L (<0.10); SHEEP SORREL IGE < 0.10 kU/L (<0.10); SYCAMORE IGE < 0.10 kU/L (<0.10); T001-IGE MAPLE BOX ELDER < 0.10 kU/L (<0.10); T006-IGE MOUNTAIN CEDAR < 0.10 kU/L (<0.10); T014 COTTONWOOD IGE < 0.10 kU/L (<0.10); TIMOTHY GRASS IGE < 0.10 kU/L (<0.10); WALNUT TREE IGE < 0.10 kU/L (<0.10); WHITE ASH IGE < 0.10 kU/L (<0.10); WHITE MULBERRY IGE < 0.10 kU/L (<0.10)
== END ==
LOC: M PLALAB 11:41
PROVIDERS: ATTEND Family Medicine
DX: E55.9 Vitamin D deficiency, unspecified (principal); I10 Essential (primary) hypertension; R73.01 Impaired fasting glucose; J30.89 Other allergic rhinitis; I44.0 Atrioventricular block, first degree

== ENCOUNTER → 2024-06-04 | Outpatient (CLI) | payer MEDICARE ==
[2024-06-04 10:15] LABS: APPEARANCE, URINE CLEAR (CLEAR); BACTERIA, URINE AUTO NEGATIVE (NEGATIVE); BILIRUBIN, URINE AUTO NEGATIVE (NEGATIVE); BLOOD, URINE BLOOD NEGATIVE (NEGATIVE); COLOR, URINE STRAW (YELLOW); GLUCOSE, URINE (UA) AUTO NEGATIVE (NEGATIVE); KETONE, URINE AUTO NEGATIVE (NEGATIVE); LEUKOCYTE ESTERASE, URINE AUTO NEGATIVE (NEGATIVE); NITRITE, URINE AUTO NEGATIVE (NEGATIVE); PROTEIN, URINE AUTO NEGATIVE (NEGATIVE); RBC, URINE AUTO 0 /HPF (0-3); SPECIFIC GRAVITY URINE AUTO 1.002 (1.002-1.035); SQUAMOUS EPITHELIAL CELL UR AU 0 /HPF (0-6); UROBILINOGEN, URINE AUTO 0.2 mg/dL (0.0-2.0); WBC, URINE AUTO 0 /HPF (0-3)
== END ==
LOC: M PLALAB 09:03
PROVIDERS: ATTEND Surgery
DX: N39.3 Stress incontinence (female) (male) (principal)

== ENCOUNTER → 2024-07-25 | Outpatient (CLI) | payer MEDICARE | LOC: M PLALAB 07:24 | PROVIDERS: ATTEND Urology | DX: C61 Malignant neoplasm of prostate (principal) ==

== ENCOUNTER → 2024-08-26 | Outpatient (CLI) | payer MEDICARE ==
[2024-08-26 11:51] LABS: BASO % 0.6 % (0.0-1.0); EOS # 0.2 10^3/uL (0.0-0.5); EOS % 2.9 % (0.0-3.0); HEMATOCRIT 48.9 % (42.0-52.0); HEMOGLOBIN 16.1 g/dl (13.5-17.5); LYMPH # 1.4 10^3/uL (1.5-5.0); LYMPH % 27.7 % (24.0-44.0); MEAN CORPUSCULAR HEMOGLOBIN 30.6 pg (27.0-33.0); MEAN CORPUSCULAR HGB CONC 32.9 g/dl (32.0-36.5); MEAN CORPUSCULAR VOLUME 92.8 fl (80.0-96.0); MONO # 0.5 10^3/uL (0.0-0.8); MONO % 10.4 % (2.0-8.0); NEUTROPHILS % 58.2 % (36.0-66.0); PLATELET COUNT, AUTOMATED 257 10^3/uL (150-450); RED BLOOD COUNT 5.27 10^6/uL (4.30-6.10); WHITE BLOOD COUNT 5.2 10^3/uL (4.0-10.0)
[2024-08-26 12:02] LABS: HEMOGLOBIN A1c 5.4 % (4.0-6.0)
[2024-08-26 12:11] LABS: ALBUMIN 3.9 G/DL (3.2-5.2); ALKALINE PHOSPHATASE 108 U/L (40-129); ALT/SGPT 25 U/L (7.0-40); AST/SGOT 22 U/L (<34); BILIRUBIN,TOTAL 1.1 MG/DL (0.3-1.2); BLOOD UREA NITROGEN 17 MG/DL (9-23); CALCIUM LEVEL 9.6 MG/DL (8.3-10.6); CARBON DIOXIDE LEVEL 29 MMOL/L (20-31); CHLORIDE LEVEL 106 MMOL/L (98-107); CHOLESTEROL LEVEL 212 MG/DL (<200); CHOLESTEROL RISK RATIO 3.79 (<5); CREATININE FOR GFR 0.83 MG/DL (0.70-1.30); GLOMERULAR FILTRATION RATE > 60.0 (>42); GLUCOSE, FASTING 99 MG/DL (74-106); HDL CHOLESTEROL 55.9 MG/DL (>40); LDL CHOLESTEROL 140.1 MG/DL (<100); NON-HDL-C 156.1 MG/DL; SODIUM LEVEL 141 MMOL/L (136-145); TOTAL PROTEIN 6.9 G/DL (5.7-8.2); TRIGLYCERIDES LEVEL 80 MG/DL (<150)
[2024-08-26 12:14] LABS: THYROID STIMULATING HORMONE 4.161 uIU/ML (0.55-4.78)
[2024-08-26 12:15] LABS: FERRITIN 117.1 NG/ML (10.5-307.3); FREE T4 1.21 NG/DL (0.89-1.76); PTH INTACT 22.8 PG/ML (18.5-88.0)
[2024-08-26 12:16] LABS: TOTAL 25(OH) VITAMIN D 93.9 NG/ML (20.0-100.0)
[2024-08-27 11:27] LABS: INSULIN LEVEL 10.1 uIU/mL (<=18.4)
[2024-08-27 15:02] LABS: BERMUDA GRASS IGE < 0.10 kU/L (<0.10); BIRCH IGE < 0.10 kU/L (<0.10); COMMON RAGWEED SHORT IGE < 0.10 kU/L (<0.10); D001 IGE D PTERONYSSINUS < 0.10 kU/L (<0.10); D002-IGE D FARINAE < 0.10 kU/L (<0.10); E001-IGE CAT DANDER < 0.10 kU/L (<0.10); E005-IGE DOG DANDER < 0.10 kU/L (<0.10); ELM IGE < 0.10 kU/L (<0.10); I006 IGE COCKROACH < 0.10 kU/L (<0.10); IMMUNOGLOBULIN E FOR ALLERGENS 49 kU/L (<OR=114); M002 IGE CLADOSPORIUM HERBARU < 0.10 kU/L (<0.10); M003 IGE ASPERGILLUS FUMIGATU < 0.10 kU/L (<0.10); M006 IGE ALTERNIA ALTERNATA < 0.10 kU/L (<0.10); M1-PENICILLIUM NOTATUM < 0.10 kU/L (<0.10); MOUSE URINE IGE < 0.10 kU/L (<0.10); MUGWORT IGE < 0.10 kU/L (<0.10); OAK IGE < 0.10 kU/L (<0.10); ROUGH PIGWEED IGE < 0.10 kU/L (<0.10); SHEEP SORREL IGE < 0.10 kU/L (<0.10); SYCAMORE IGE < 0.10 kU/L (<0.10); T001-IGE MAPLE BOX ELDER < 0.10 kU/L (<0.10); T006-IGE MOUNTAIN CEDAR < 0.10 kU/L (<0.10); T014 COTTONWOOD IGE < 0.10 kU/L (<0.10); TIMOTHY GRASS IGE < 0.10 kU/L (<0.10); WALNUT TREE IGE < 0.10 kU/L (<0.10); WHITE ASH IGE < 0.10 kU/L (<0.10); WHITE MULBERRY IGE < 0.10 kU/L (<0.10)
== END ==
LOC: M PLALAB 08:07
PROVIDERS: ATTEND Family Medicine
DX: E55.9 Vitamin D deficiency, unspecified (principal); I10 Essential (primary) hypertension; J30.89 Other allergic rhinitis; R73.01 Impaired fasting glucose

== ENCOUNTER → 2024-10-11 | Outpatient (CLI) | payer MEDICARE | LOC: M PLALAB 07:30 | PROVIDERS: ATTEND Urology | DX: C61 Malignant neoplasm of prostate (principal) ==

== ENCOUNTER → 2025-03-14 | Outpatient (CLI) | payer MEDICARE ==
[2025-03-14 10:26] LABS: BASO # 0.0 10^3/uL (0.0-0.2); BASO % 0.7 % (0.0-1.0); EOS # 0.1 10^3/uL (0.0-0.5); EOS % 2.4 % (0.0-3.0); LYMPH # 1.4 10^3/uL (1.5-5.0); LYMPH % 24.1 % (24.0-44.0); MONO # 0.6 10^3/uL (0.0-0.8); MONO % 10.2 % (2.0-8.0); NEUTROPHILS # 3.7 10^3/uL (1.5-8.5); NEUTROPHILS % 62.4 % (36.0-66.0); PLATELET COUNT, AUTOMATED 263 10^3/uL (150-450)
[2025-03-14 11:00] LABS: ALT/SGPT 25 U/L (7.0-40); AST/SGOT 23 U/L (<34); C REACTIVE PROTEIN QUANTITATIV < 0.50 MG/DL (<1.0); CALCIUM LEVEL 9.2 MG/DL (8.3-10.6); CARBON DIOXIDE LEVEL 28 MMOL/L (20-31); CHLORIDE LEVEL 103 MMOL/L (98-107); CHOLESTEROL LEVEL 191 MG/DL (<200); CHOLESTEROL RISK RATIO 3.26 (<5); CREATININE FOR GFR 0.88 MG/DL (0.70-1.30); FREE T4 1.25 NG/DL (0.89-1.76); GLOMERULAR FILTRATION RATE 87.5 (>42); IRON (FE) 121 UG/DL (65-175); LDL CHOLESTEROL 119.5 MG/DL (<100); NON-HDL-C 132.5 MG/DL; PERCENT SATURATION 39.4 % (19.7-50.0); POTASSIUM SERUM 4.6 MMOL/L (3.5-5.1); PTH INTACT 34.1 PG/ML (18.5-88.0); SODIUM LEVEL 141 MMOL/L (136-145); TRIGLYCERIDES LEVEL 65 MG/DL (<150)
[2025-03-14 11:01] LABS: TOTAL 25(OH) VITAMIN D 92.9 NG/ML (20.0-100.0)
[2025-03-14 11:16] LABS: ESTIMATED AVERAGE GLUCOSE 114.0 MG/DL (60-110)
== END ==
LOC: M PLALAB 08:09
PROVIDERS: ATTEND Family Medicine
DX: E55.9 Vitamin D deficiency, unspecified (principal); I10 Essential (primary) hypertension; R73.03 Prediabetes; K76.0 Fatty (change of) liver, not elsewhere classified

== ENCOUNTER → 2025-05-14 | Outpatient (CLI) | payer MEDICARE | LOC: M PLALAB 07:42 | PROVIDERS: ATTEND Urology | DX: C61 Malignant neoplasm of prostate (principal) ==